=== PATIENT | female | born 1995 | race Caucasian/White ===

== ENCOUNTER 2017-10-15 12:16 | Emergency (ER) | payer OTHER ==
[2017-10-15] MEDS ORDERED: TORAdol 30 mg Injection IM ONE (12:50)
--- NOTE | 2017-10-15 12:50 | ERPHSYRPT ---
- History of Present Illness Time Seen by Provider: 10/15/17 12:44 Source: patient Exam Limitations: no limitations Patient Subjective Stated Complaint: Pt states "back in august, I hit my head on a metal trailer hitch and I almost passed out. Ever since, I have been getting headaches and the vision in my right eye is a little blurry and I am having a horrible ringing in my ears. I went to [facility] and saw le and she said I should come here." Triage Nursing Assessment: Pt alert and oriented X 3, skin pwd PT ambulates with an upright steady gait, able to speak in clear full sentences. PT in no apparent distress. Physician History: The patient is a 22-year-old female sent to the ER from [facility] where she presented with a headache, visual changes, and right ear problems. On September 08 the patient hit the top part of the left side of her head on a [place] trailer hitch knocking her to the ground and causing her to see black for 2-3 seconds. She was nauseated for a day. There was a small cut also to her scalp that was bleeding. The scalp injury has since healed. She still is tender where she hit the trailer. She did not seek medical attention immediately but did so after a few days. She went to [facility] a few days later. No imaging studies were done. She was told she had some sinus problems. Her headache has continued daily since the injury. Her nausea has resolved. She has blurred vision intermittently in her right eye for the last 3-4 days. She also has some muffled hearing in her right ear for the last 3 or 4 days. Her past medical history is unremarkable. Occurred: other (5 weeks ago) Severity: moderate Head Injury Location: parietal (left) Method of Injury: direct blow Loss of Consciousness: dazed, duration (2 to 3 seconds) Associated Symptoms: nausea, headaches Allergies/Adverse Reactions: No Known Drug Allergies Allergy (Unverified 10/15/17 12:26) Home Medications: Norgestimate-Ethinyl Estradiol [Zpr-Fb-Mweaocsyf Tablet] 1 tab PO DAILY [History] Hx Tetanus, Diphtheria Vaccination/Date Given: Yes Hx Influenza Vaccination/Date Given: Yes Hx Pneumococcal Vaccination/Date Given: No Immunizations Up to Date: Yes - Review of Systems Constitutional: No Fever, No Chills Eyes: Vision Changes (right eye for last 4 days.) Ears, Nose, & Throat: No Symptoms, Hearing Changes (right ear) Respiratory: No Cough, No Dyspnea Cardiac: No Chest Pain, No Edema, No Syncope Abdominal/Gastrointestinal: Nausea (resolved), No Abdominal Pain, No Vomiting, No Diarrhea Genitourinary Symptoms: No Dysuria Musculoskeletal: No Back Pain, No Neck Pain Skin: No Rash Neurological: Headache, No Dizziness, No Focal Weakness, No Seizure, No Sensory Changes, No Speech Changes Psychological: No Symptoms Endocrine: No Symptoms Hematologic/Lymphatic: No Symptoms Immunological/Allergic: No Symptoms All Other Systems: Reviewed and Negative - Past Medical History Pertinent Past Medical History: No - Past Surgical History Past Surgical History: Yes Other Surgical History: tonsilectomy - Social History Smoking Status: Never smoker Exposure to second hand smoke: Yes Drug Use: none Patient Lives Alone: No - Female History Hx Last Menstrual Period: 10/02/2017 Hx Now: (unknown) - Nursing Vital Signs Nursing Vital Signs: Initial Vital Signs Temperature 97.7 F 10/15/17 12:20 Pulse Rate 116 H 10/15/17 12:20 Respiratory Rate 18 10/15/17 12:20 Blood Pressure 162/82 10/15/17 12:20 O2 Sat by Pulse Oximetry 98 10/15/17 12:20 Pain Scale Pain Intensity 2 - Sujata Coma Score Best Eye Response (Sujata): (4) open spontaneously Best Verbal Response (Sujata): (5) oriented Best Motor Response (Lisman): (6) obeys commands Lisman Total: 15 - Physical Exam General Appearance: no apparent distress, alert Head Injury: tenderness (mild tenderness to small area of left parietal scalp. 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 Exam: normal hearing, normal speech, tongue midline, No abnormal eye position, No abnormal gag reflex, No abnormal pupil position, No abnormal speech , No facial asymmetry, No facial paresthesias, No facial weakness, No hearing deficit (R), No hearing deficit (L) Motor/Sensory Exam: no motor deficit, no sensory deficit, CN II-XII intact Skin Exam: normal color, warm, dry, No rash SpO2 Interpretation: normal SpO2: 98 Oxygen Delivery: Room Air - CT Exams Head CT Interpretation: Negative (Per Dr Bartholomew), Tele-radiologist Report, No Fracture , No/Intracranial Hemorrhag Ordered Tests: Active Orders 24 hr Category Date Time Status HEAD WITHOUT CONTRAST [CT] Stat Exams 10/15/17 12:51 Completed BMP Stat Lab 10/15/17 13:07 Completed CBC W DIFF Stat Lab 10/15/17 13:07 Completed Medication Summary Discontinued Medications Generic Name Dose Route Start Last Admin Trade Name Freq PRN Reason Stop Dose Admin Ketorolac Tromethamine 60 mg 10/15/17 12:50 10/15/17 12:57 Toradol 30 Mg Injection IM 10/15/17 12:51 60 mg STAT ONE Administration Ketorolac Tromethamine Confirm 10/15/17 12:56 Toradol 30 Mg Injection Administered 10/15/17 12:57 Dose 60 mg .ROUTE .Intersect ENT-MED ONE Lab/Rad Data: Laboratory Result Diagrams 10/15/17 13:07 10/15/17 13:07 Laboratory Results 10/15/17 10/15/17 Range/Units 13:07 13:07 WBC 8.2 (4.0-10.5) K/mm3 RBC 4.75 (4.1-5.4) M/mm3 Hgb 13.4 (12.0-16.0) gm/dl Hct 40.8 (35-47) % MCV 85.9 (78-100) fl MCH 28.2 (26-32) pg MCHC 32.8 (32-36) g/dl RDW 12.7 (11.5-14.0) % Plt Count 279 (150-450) K/mm3 MPV 10.1 H (6-9.5) fl Gran % 59.3 (36.0-66.0) % Eos # (Auto) 0.04 (0-0.5) Absolute Lymphs (auto) 2.66 (1.0-4.6) Absolute Monos (auto) 0.64 (0.0-1.3) Lymphocytes % 32.3 (24.0-44.0) % Monocytes % 7.8 (0.0-12.0) % Eosinophils % 0.5 (0.00-5.0) % Basophils % 0.1 (0.0-0.4) % Absolute Granulocytes 4.88 (1.4-6.9) Basophils # 0.01 (0-0.4) Sodium 142 (137-145) mmol/L Potassium 4.2 (3.5-5.1) mmol/L Chloride 107 (98-107) mmol/L Carbon Dioxide 29 (22-30) mmol/L Anion Gap 9.7 (5-15) MEQ/L BUN 8 (7-17) mg/dL Creatinine 0.55 (0.52-1.04) mg/dL Estimated GFR > 60.0 ML/MIN Glucose 104 (74-106) mg/dL Calcium 9.2 (8.4-10.2) mg/dL - Progress Progress: improved Progress Note: 10/15/17 15:03 After toradol 60 mg IM, headache has resolved. Counseled pt/family regarding: lab results, diagnosis, need for follow-up, rad results - Departure Time of Disposition: 15:03 Departure Disposition: Home Clinical Impression: Posttraumatic headache Condition: Stable Critical Care Time: No Referrals: RUTH SIMS MD [Primary Care Provider] - Additional Instructions: You have a posttraumatic headache. You were given Toradol 60 mg by IM in the ER with good results. Your head CT scan was completely normal. Your blood work was normal. Take naproxen 500 mg 2 times a day as needed. Follow-up next week if the headache returns. Prescriptions: Naproxen 500 mg PO BID PRN #30 tablet.
[2017-10-15] MEDS ORDERED: TORAdol 30 mg Injection ONE (12:56)
[2017-10-15 13:12] LABS: BASOPHIL % 0.1 % (0.0-0.4); Basophil (Absolute #) 0.01 (0-0.4); Eosinophil % 0.5 % (0.00-5.0); Eosinophil (Absolute #) 0.04 (0-0.5); Granulocyte Absolute (ANC) 4.88 (1.4-6.9); Granulocytes % 59.3 % (36.0-66.0); Hematocrit 40.8 % (35-47); Hemoglobin 13.4 gm/dl (12.0-16.0); Lymphocyte (Absolute #) 2.66 (1.0-4.6); Lymphocytes % 32.3 % (24.0-44.0); Mean Cell Volume 85.9 fl (78-100); Mean Corpuscular Hemoglobin 28.2 pg (26-32); Mean Corpuscular Hgb Concent. 32.8 g/dl (32-36); Mean Platelet Volume 10.1 fl (6-9.5); Monocyte (Absolute #) 0.64 (0.0-1.3); Monocytes % 7.8 % (0.0-12.0); Platelet Count 279 K/mm3 (150-450); Red Blood Count 4.75 M/mm3 (4.1-5.4); Red Cell Distribution Width 12.7 % (11.5-14.0); White Blood Count 8.2 K/mm3 (4.0-10.5)
--- NOTE | 2017-10-15 13:30 | XRAY ---
Exam: CT of the head without IV contrast 07/11/2017. CTDI: 52.19 Comparison: None. Indication: 22-year-old female with trauma, hit top of head on left side in August, headache, blurry vision. Findings: Non-IV contrast axial images obtained through the brain. Reconstructed coronal and sagittal images were created and reviewed. The ventricles appear of normal size. No focal mass effect or midline shift is seen. No acute intracranial bleed or abnormal extra-axial fluid collection is seen. The fernandez matter-white matter interfaces appear normal. No low attenuation brain lesion is seen to suggest a territorial infarct or focal edema. The cortical sulci and basilar cisterns appear unremarkable. The calvarium of the skull appears intact. Incidental note of mild focal cortical thickening of the external table of the skull is seen within the right side of the frontal bone on axial images #21 through #25. The visualized paranasal sinuses are essentially clear. The mastoid air cells reveal no effusion or other abnormality. The middle ear cavities appear unremarkable. No gross abnormality of the orbits is seen. Impression: 1. No acute intracranial bleed or other acute intracranial process is seen. Nor do I detect a skull fracture.
[2017-10-15 13:41] LABS: ANION GAP 9.7 MEQ/L (5-15); BLOOD UREA NITROGEN 8 mg/dL (7-17); CHLORIDE 107 mmol/L (98-107); Calcium 9.2 mg/dL (8.4-10.2); Carbon Dioxide 29 mmol/L (22-30); Creatinine 1 0.55 mg/dL (0.52-1.04); Glucose 104 mg/dL (74-106); Potassium 4.2 mmol/L (3.5-5.1); SODIUM 142 mmol/L (137-145)
[2017-10-15 15:05] VITALS: O2SAT 98
[2017-10-15 15:13] VITALS: BP 144/87; PULSE 90
== END 2017-10-15 15:13 | disposition home or self-care (01) ==
LOC: ED 12:16
DX: G44.309 Post-traumatic headache, unspecified, not intractable (principal)
CPT/HCPCS: 36415; 70450; 80048; 85025; 96372; 99284; J1885

== ENCOUNTER 2019-04-07 17:49 | Emergency (ER) | payer OTHER ==
[2019-04-07] MEDS ORDERED: Sodium Chloride 0.9% 1000 ML 1,000 ML IV STA (18:13)
[2019-04-07] MEDS ORDERED: MORPHINE SULFATE 4 MG INJ IV ONE (18:28)
[2019-04-07] MEDS ORDERED: BENADRYL 50 MG/ML IV ONE (18:28)
[2019-04-07] MEDS ORDERED: Sodium Chloride 0.9% 1000 ML 1,000 ML ONE (18:29)
[2019-04-07] MEDS ORDERED: BENADRYL 50 MG/ML ONE (18:34)
[2019-04-07] MEDS ORDERED: MORPHINE SULFATE 4 MG INJ ONE (18:34)
[2019-04-07 18:45] LABS: Appearance CLOUDY (CLEAR); Bilirubin NEGATIVE (NEGATIVE); Blood NEGATIVE Ery/ul (0-5); Epithelial Cells RARE /HPF (FEW); Glucose NEGATIVE (NEGATIVE); Ketones NEGATIVE (NEGATIVE); Leukocyte Esterase SMALL (NEGATIVE); Mucus SLIGHT /HPF (NEGATIVE); Nitrite NEGATIVE (NEGATIVE); Protein,Urine Dip NEGATIVE (Negative); RBC 0-2 /HPF (0-2); Specific Gravity 1.008 (1.005-1.025); Urobilinogen NEGATIVE mg/dL (0-1)
[2019-04-07 18:49] LABS: Absolute Neutrophil Ct (ANC) 5.47 (1.4-6.9); BASOPHIL % 0.2 % (0.0-0.4); Basophil (Absolute #) 0.02 (0-0.4); Eosinophil % 1.5 % (0.00-5.0); Eosinophil (Absolute #) 0.14 (0-0.5); Hematocrit 40.9 % (35-47); Hemoglobin 13.1 gm/dl (12.0-16.0); Lymphocyte (Absolute #) 3.05 (1.0-4.6); Lymphocytes % 32.4 % (24.0-44.0); Mean Cell Volume 84.7 fl (78-100); Mean Corpuscular Hemoglobin 27.1 pg (26-32); Mean Platelet Volume 10.7 fl (6-9.5); Monocyte (Absolute #) 0.74 (0.0-1.3); Monocytes % 7.9 % (0.0-12.0); Platelet Count 302 K/mm3 (150-450); Red Blood Count 4.83 M/mm3 (4.1-5.4); Red Cell Distribution Width 13.4 % (11.5-14.0); White Blood Count 9.4 K/mm3 (4.0-10.5)
[2019-04-07 19:01] LABS: ALBUMIN 4.1 g/dL (3.5-5.0); ALKALINE PHOSPHATASE 84 U/L (38-126); AMYLASE 95 U/L (30-110); ANION GAP 12.8 MEQ/L (5-15); BLOOD UREA NITROGEN 6 mg/dL (7-17); CHLORIDE 107 mmol/L (98-107); Calcium 9.4 mg/dL (8.4-10.2); Carbon Dioxide 24 mmol/L (22-30); Creatinine 1 0.53 mg/dL (0.52-1.04); Glucose 95 mg/dL (74-106); LIPASE 116 U/L (23-300); SGOT/AST 22 U/L (14-36); SGPT/ALT 12 U/L (0-35); SODIUM 140 mmol/L (137-145)
[2019-04-07 19:05] LABS: INR 1.02 (0.8-3.0); PROTIME 11.5 SECONDS (9.95-12.35)
--- NOTE | 2019-04-07 19:18 | ERPHSYRPT ---
- History of Present Illness Time Seen by Provider: 04/07/19 17:50 Historian: patient Exam Limitations: no limitations Patient Subjective Stated Complaint: PATIENT STATES SHE STARTED HAVING SHARP PAINS AROUND 1730 TODAY IN LEFT SIDE/ABD. PATIENT DENIES PAIN OR BURNING UPON URINATION. PATIENT STATES SHE BECAME DIZZY AND FELT LIKE SHE WAS GOING TO THROW UP. Triage Nursing Assessment: PATIENT AMBULATED TO ROOM. PATIENT WITH SLOW AND STEADY GAIT AND HOLDING TO LEFT SIDE. PATIENT STATED PAIN STARTED AROUND 1730 TODAY. PATIENT STATES IT HAS SHARP PAINS WHEN SHE TAKES IN A DEEP BREATH. CENTRAL COLOR WNL. NO BRUISING NOTED TO LEFT SIDE/ABD. PATIENT DENIES ANY INJURY. Physician History: Patient had sudden onset of LLQ abdominal pain prior to coming into the emergency department. Patient had no nausea or vomiting with it. Patient thought it may be constipation, but it was more severe. She has had no evaluation or treatment prior to coming into the emergency department. Timing/Duration: today Activities at Onset: none Quality: cramping, stabbing Pain Radiation: flank Severity of Pain-Max: severe Severity of Pain-Current: moderate Modifying Factors: Improves With: nothing Associated Symptoms: No back, No chest pain, No diaphoresis, No diarrhea, No fever/chills, No fatigue, No headache, No heartburn, No loss of appetite, No nausea, No neck pain, No rash, No shortness of breath, No syncope, No vomiting, No weakness Previous symptoms: same symptoms as today (no evaluation at that time), no recent treatment Allergies/Adverse Reactions: No Known Drug Allergies Allergy (Unverified 10/15/17 12:26) Home Medications: Norgestimate-Ethinyl Estradiol [Nzz-Vo-Mdqewvtsx Tablet] 1 tab PO DAILY [History] Hx Tetanus, Diphtheria Vaccination/Date Given: Yes Hx Influenza Vaccination/Date Given: Yes Hx Pneumococcal Vaccination/Date Given: No Immunizations Up to Date: Yes - Review of Systems Constitutional: No Fever, No Chills, No Lethargy, No Malaise Eyes: No Eye Pain, No Eye Redness Ears, Nose, & Throat: No Mouth Pain, No Throat Pain, No Throat Swelling Respiratory: No Cough, No Dyspnea Cardiac: No Chest Pain, No Edema, No Syncope Abdominal/Gastrointestinal: Abdominal Pain, No Nausea, No Vomiting, No Diarrhea , No Hematemesis, No Hematochezia, No Melena Genitourinary Symptoms: Flank Pain, No Dysuria, No Hematuria Musculoskeletal: No Back Pain, No Neck Pain Skin: No Rash Neurological: No Dizziness, No Focal Weakness, No Sensory Changes Psychological: No Symptoms Endocrine: No Excessive Sweating Hematologic/Lymphatic: No Easy Bleeding, No Easy Bruising All Other Systems: Reviewed and Negative - Past Medical History Pertinent Past Medical History: No Neurological History: Migraines ENT History: No Pertinent History Cardiac History: No Pertinent History Respiratory History: No Pertinent History Endocrine Medical History: No Pertinent History Musculoskeletal History: No Pertinent History GI Medical History: No Pertinent History History: No Pertinent History Psycho-Social History: No Pertinent History Female Reproductive Disorders: No Pertinent History - Past Surgical History Past Surgical History: Yes Neuro Surgical History: No Pertinent History Cardiac: No Pertinent History Respiratory: No Pertinent History Gastrointestinal: No Pertinent History Genitourinary: No Pertinent History Musculoskeletal: No Pertinent History Female Surgical History: No Pertinent History Other Surgical History: tonsilectomy - Social History Smoking Status: Never smoker Exposure to second hand smoke: No Drug Use: none Patient Lives Alone: No - Female History Hx Last Menstrual Period: 03/19/19 Hx Now: No - Nursing Vital Signs Nursing Vital Signs: Initial Vital Signs Temperature 97.5 F 04/07/19 17:57 Pulse Rate 102 H 04/07/19 17:57 Respiratory Rate 18 04/07/19 17:57 Blood Pressure 141/83 04/07/19 17:57 O2 Sat by Pulse Oximetry 97 04/07/19 17:57 Pain Scale Pain Intensity [Left 7 Generalized] Pain Intensity 0 - Physical Exam General Appearance: no apparent distress, alert Eye Exam: PERRL/EOMI, eyes nml inspection Ears, Nose, Throat Exam: normal ENT inspection, pharynx normal, moist mucous membranes Neck Exam: normal inspection, non-tender, supple, full range of motion Respiratory Exam: normal breath sounds, lungs clear, No respiratory distress, No prolonged expirations Cardiovascular Exam: regular rate/rhythm, normal heart sounds, capillary refill <2 sec Gastrointestinal/Abdomen Exam: soft, normal bowel sounds, No tenderness, No distention, No mass, No guarding, No rebound Back Exam: normal inspection, normal range of motion, No CVA tenderness, No vertebral tenderness Extremity Exam: normal inspection, normal range of motion, pelvis stable Neurologic Exam: alert, oriented x 3, 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 6 x 8.3 x 6.7 cm left adnexal cystic mass with tiny cul-de-sac fluid. 12.5 cm splenomegaly. Remaining abdomen and pelvis is negative) Ordered Tests: Active Orders 24 hr Category Date Time Status IV Insertion STAT Care 04/07/19 18:13 Active ABDOMEN AND PELVIS W/0 CONTRAS [CT] Stat Exams 04/07/19 18:25 Taken AMYLASE Stat Lab 04/07/19 18:45 Completed CBC W DIFF Stat Lab 04/07/19 18:45 Completed CMP Stat Lab 04/07/19 18:45 Completed HCG,QUALITATIVE URINE Stat Lab 04/07/19 19:00 Completed LIPASE Stat Lab 04/07/19 18:45 Completed Lactic Acid Stat Lab 04/07/19 18:33 Completed PROTIME WITH INR Stat Lab 04/07/19 18:45 Completed UA W/RFX UR CULTURE Stat Lab 04/07/19 18:28 Completed Medication Summary Discontinued Medications Generic Name Dose Route Start Last Admin Trade Name Freq PRN Reason Stop Dose Admin Diphenhydramine HCl 25 mg 04/07/19 18:28 04/07/19 18:35 Benadryl 50 Mg/Ml IV 04/07/19 18:29 25 mg STAT ONE Administration Diphenhydramine HCl Confirm 04/07/19 18:34 Benadryl 50 Mg/Ml Administered 04/07/19 18:35 Dose 50 mg .ROUTE .STK-MED ONE Sodium Chloride 1,000 mls @ 999 mls/hr 04/07/19 18:13 04/07/19 19:51 Sodium Chloride 0.9% 1000 Ml IV 04/07/19 19:13 Infused .Q1H1M STA Infusion Sodium Chloride Confirm 04/07/19 18:29 Sodium Chloride 0.9% 1000 Ml Administered 04/07/19 18:30 Dose 1,000 mls @ ud .ROUTE .STK-MED ONE Morphine Sulfate 4 mg 04/07/19 18:28 04/07/19 18:35 Morphine Sulfate 4 Mg Inj IV 04/07/19 18:29 4 mg STAT ONE Administration Morphine Sulfate Confirm 04/07/19 18:34 Morphine Sulfate 4 Mg Inj Administered 04/07/19 18:35 Dose 4 mg .ROUTE .STK-MED ONE Lab/Rad Data: Laboratory Result Diagrams 04/07/19 18:45 04/07/19 18:45 Laboratory Results 04/07/19 04/07/19 04/07/19 Range/Units 19:00 18:45 18:45 WBC (4.0-10.5) K/mm3 RBC (4.1-5.4) M/mm3 Hgb (12.0-16.0) gm/dl Hct (35-47) % MCV (78-100) fl MCH (26-32) pg MCHC (32-36) g/dl RDW (11.5-14.0) % Plt Count (150-450) K/mm3 MPV (6-9.5) fl Gran % (36.0-66.0) % Eos # (Auto) (0-0.5) Absolute Lymphs (auto) (1.0-4.6) Absolute Monos (auto) (0.0-1.3) Lymphocytes % (24.0-44.0) % Monocytes % (0.0-12.0) % Eosinophils % (0.00-5.0) % Basophils % (0.0-0.4) % Absolute Granulocytes (1.4-6.9) Basophils # (0-0.4) PT 11.5 (9.95-12.35) SECONDS INR 1.02 (0.8-3.0) Sodium 140 (137-145) mmol/L Potassium 4.0 (3.5-5.1) mmol/L Chloride 107 (98-107) mmol/L Carbon Dioxide 24 (22-30) mmol/L Anion Gap 12.8 (5-15) MEQ/L BUN 6 L (7-17) mg/dL Creatinine 0.53 (0.52-1.04) mg/dL Estimated GFR > 60.0 ML/MIN Glucose 95 (74-106) mg/dL Lactic Acid (0.4-2.0) Calcium 9.4 (8.4-10.2) mg/dL Total Bilirubin 0.50 (0.2-1.3) mg/dL AST 22 (14-36) U/L ALT 12 (0-35) U/L Alkaline Phosphatase 84 (38-126) U/L Serum Total Protein 8.0 (6.3-8.2) g/dL Albumin 4.1 (3.5-5.0) g/dL Amylase 95 (30-110) U/L Lipase 116 (23-300) U/L Urine Color (YELLOW) Urine Appearance (CLEAR) Urine pH (5-6) Ur Specific [place] (1.005-1.025) Urine Protein (Negative) Urine Ketones (NEGATIVE) Urine Blood (0-5) Juni/ul Urine Nitrite (NEGATIVE) Urine Bilirubin (NEGATIVE) Urine Urobilinogen (0-1) mg/dL Ur Leukocyte Esterase (NEGATIVE) Urine WBC (Auto) (0-5) /HPF Urine RBC (Auto) (0-2) /HPF U Epithel Cells (Auto) (FEW) /HPF Urine Bacteria (Auto) (NEGATIVE) /HPF Unidentified Crystals (NEGATIVE) /HPF Urine Mucus (Auto) (NEGATIVE) /HPF Urine Culture Reflexed (NO) Urine Glucose (NEGATIVE) mg/dL Urine HCG, Qual NEGATIVE (Negative) 04/07/19 04/07/19 04/07/19 Range/Units 18:45 18:33 18:28 WBC 9.4 (4.0-10.5) K/mm3 RBC 4.83 (4.1-5.4) M/mm3 Hgb 13.1 (12.0-16.0) gm/dl Hct 40.9 (35-47) % MCV 84.7 (78-100) fl MCH 27.1 (26-32) pg MCHC 32.0 (32-36) g/dl RDW 13.4 (11.5-14.0) % Plt Count 302 (150-450) K/mm3 MPV 10.7 H (6-9.5) fl Gran % 58.0 (36.0-66.0) % Eos # (Auto) 0.14 (0-0.5) Absolute Lymphs (auto) 3.05 (1.0-4.6) Absolute Monos (auto) 0.74 (0.0-1.3) Lymphocytes % 32.4 (24.0-44.0) % Monocytes % 7.9 (0.0-12.0) % Eosinophils % 1.5 (0.00-5.0) % Basophils % 0.2 (0.0-0.4) % Absolute Granulocytes 5.47 (1.4-6.9) Basophils # 0.02 (0-0.4) PT (9.95-12.35) SECONDS INR (0.8-3.0) Sodium (137-145) mmol/L Potassium (3.5-5.1) mmol/L Chloride (98-107) mmol/L Carbon Dioxide (22-30) mmol/L Anion Gap (5-15) MEQ/L BUN (7-17) mg/dL Creatinine (0.52-1.04) mg/dL Estimated GFR ML/MIN Glucose (74-106) mg/dL Lactic Acid 1.7 (0.4-2.0) Calcium (8.4-10.2) mg/dL Total Bilirubin (0.2-1.3) mg/dL AST (14-36) U/L ALT (0-35) U/L Alkaline Phosphatase (38-126) U/L Serum Total Protein (6.3-8.2) g/dL Albumin (3.5-5.0) g/dL Amylase (30-110) U/L Lipase (23-300) U/L Urine Color RED (YELLOW) Urine Appearance CLOUDY (CLEAR) Urine pH 6.0 (5-6) Ur Specific [place] 1.008 (1.005-1.025) Urine Protein NEGATIVE (Negative) Urine Ketones NEGATIVE (NEGATIVE) Urine Blood NEGATIVE (0-5) Juni/ul Urine Nitrite NEGATIVE (NEGATIVE) Urine Bilirubin NEGATIVE (NEGATIVE) Urine Urobilinogen NEGATIVE (0-1) mg/dL Ur Leukocyte Esterase SMALL (NEGATIVE) Urine WBC (Auto) 6-10 (0-5) /HPF Urine RBC (Auto) 0-2 (0-2) /HPF U Epithel Cells (Auto) RARE (FEW) /HPF Urine Bacteria (Auto) NONE (NEGATIVE) /HPF Unidentified Crystals 2-5 (NEGATIVE) /HPF Urine Mucus (Auto) SLIGHT (NEGATIVE) /HPF Urine Culture Reflexed NO (NO) Urine Glucose NEGATIVE (NEGATIVE) mg/dL Urine HCG, Qual (Negative) - Progress Progress: improved Progress Note: 04/07/19 20:38 Patient has no further abdominal pain. Repeat abdominal examination is negative for pain, guarding, rebound or CVA tenderness bilaterally. Patient has no findings that required further inpatient monitoring and treatment, and he surgical or gynecologic or urologic surgical evaluation or any further imaging testing this evening. Patient will followup with her physician as an outpatient on to get an outpatient ultrasound to quantify the left adnexal mass seen on today's CT scan imaging as the patient is at low risk for having an ovarian torsion at this time due to symptomatology as well no bowel obstruction, urologic obstruction or any inflammatory intra-abdominal or intra- pelvic organ disease at this time. Counseled pt/family regarding: lab results, diagnosis, need for follow-up, rad results - Departure Departure Disposition: Home Clinical Impression: LLQ abdominal pain, Adnexal mass, Splenomegaly Condition: Good Critical Care Time: No Referrals: RUTH SIMS MD [Primary Care Provider] - 04/08/19 (follow-up to get an outpatient ultrasound to follow-up today's CT scan findins) Instructions: Acute Abdomen (Belly Pain), Adult (DC), Ovarian Cyst (DC), Acute Pelvic Pain (DC) Additional Instructions: Discharge/Care Plan CANDELARIALEELEE was seen on 04/07/19 in the Emergency Room. The patient was counseled regarding Diagnosis,Lab results, Imaging studies, need for follow up and when to return to the Emergency Room. Follow-up with your doctor in the morning of 04/08/2019 to get set-up for an ultrasound as an outpatient Prescriptions given: Lodine twice daily as needed Discharge Note I have spoken with the patient and family. I have explained the patient's condition, diagnosis and treatment plan based on the information available to me at this time. I have answered the patient's and family's questions and addressed any concerns. The patient and family have as good understanding of the patient's diagnosis, condition and treatment plan as can be expected at this point. The vital signs have been stable. The patient's condition is stable and appropriate for discharge from the emergency department. The patient will pursue further outpatient evaluation with the primary care physician or other designated or consulting physician as outlined in the discharge instructions. The patient and family are agreeable to this plan of care and follow-up instructions have been explained in detail. The patient and family have received these instructions. The patient and family are aware that any significant change in condition or worsening of symptoms should prompt an immediate return to this or the closest emergency department or call 911. Prescriptions: Etodolac 400 mg [Lodine 400 mg] 400 mg PO BID PRN PRN #20 tablet PRN Reason: Pain
[2019-04-07 20:38] VITALS: O2SAT 100
[2019-04-07 21:02] VITALS: BP 109/75; PULSE 87
--- NOTE | 2019-04-08 09:01 | XRAY ---
Indication: Left lower quadrant/left flank pain 2 hours. Nausea and hematuria. Multiple contiguous axial images obtained through the abdomen and pelvis without contrast using renal stone protocol. Comparison: None Lung bases are clear. Heart is not enlarged. A few tiny right infrahilar calcified granulomas. No renal calculus or evidence for obstructive uropathy in either system. Stomach is distended with food. Noncontrasted stomach and bowel loops appear nonobstructed. Normal appendix. There is a 6.0 x 8.3 x 6.7 cm midline pelvic cystic mass appearing to be emanating from the left ovary. Tiny cul-de-sac free fluid. No free air. Spleen is enlarged measuring 12.8 cm. Remaining liver, gallbladder, pancreas, spleen, adrenal glands, kidneys, ureters, bladder, uterus, and aorta appear unremarkable for noncontrast exam. Osseous structures intact. Impression: 1. Negative renal calculus or evidence for obstructive uropathy. 2. Large pelvic cystic mass probably emanating from the left ovary. Tiny cul-de-sac free fluid. Pelvic sonogram may yield further information. 3. Splenomegaly and evidence for old granulomatous disease. CT DI is 19.56
== END 2019-04-07 21:10 | disposition home or self-care (01) ==
LOC: ED 17:49
DX: R10.32 Left lower quadrant pain (principal); D23.9 Other benign neoplasm of skin, unspecified; R16.1 Splenomegaly, not elsewhere classified; R42 Dizziness and giddiness
CPT/HCPCS: 36000; 36415; 74176; 80053; 81001; 82150; 83605; 83690; 84703; 85025; 85610; 96360; 96374; 96375; 99284; J1200; J2270

== ENCOUNTER 2019-04-13 05:59 | Day surgery (SDC) | payer OTHER ==
[2019-04-13] MEDS ORDERED: Lactated Ringers 1,000 ML IV SCH (06:30)
[2019-04-13] MEDS ORDERED: KEFZOL 1 GM/50 ML PREMIX** 1 GM/50 ML IVPB IV SCH (06:30)
[2019-04-13] MEDS ORDERED: Lactated Ringers 1,000 ML IV ONE (08:40)
[2019-04-13] MEDS ORDERED: Sensorcaine 0.25% 10 ML ONE (08:40)
[2019-04-13] MEDS ORDERED: SUBLIMAZE 100 MCG/2 ML ONE ×2 (08:56→09:45)
[2019-04-13] MEDS ORDERED: Quelicin Fliptop 200 MG/10 ML ONE (08:56)
[2019-04-13] MEDS ORDERED: Zemuron 100 MG/10 ML ONE (08:56)
[2019-04-13] MEDS ORDERED: DIPRIVAN 200 MG/20 ML IV ONE (08:56)
[2019-04-13] MEDS ORDERED: BRIDION 200MG/2ML IV ONE (09:36)
[2019-04-13] MEDS ORDERED: TORAdol 30 mg Injection ONE (09:36)
[2019-04-13] MEDS ORDERED: Decadron 4 MG INJ ONE (09:36)
[2019-04-13] MEDS ORDERED: Zofran 4 MG/2 ML VIAL ONE ×2 (09:36→10:17)
[2019-04-13 11:32] VITALS: O2SAT 97
[2019-04-13 11:41] LABS: Appearance CLEAR (CLEAR); Bilirubin NEGATIVE (NEGATIVE); Blood NEGATIVE Ery/ul (0-5); Glucose NEGATIVE (NEGATIVE); Ketones NEGATIVE (NEGATIVE); Leukocyte Esterase NEGATIVE (NEGATIVE); Mucus SLIGHT /HPF (NEGATIVE); Nitrite NEGATIVE (NEGATIVE); Protein,Urine Dip NEGATIVE (Negative); Specific Gravity 1.024 (1.005-1.025); Urobilinogen NEGATIVE mg/dL (0-1)
[2019-04-13 11:50] VITALS: BP 154/65; PULSE 99
--- NOTE | 2019-04-15 10:05 | OP ---
SURGERY DATE: 04/13/19 SURGERY TIME: 854 PREOPERATIVE DIAGNOSIS: 1. PELVIC PAIN. 2. LEFT OVARIAN CYST. POSTOPERATIVE DIAGNOSIS: 1. PELVIC PAIN. 2. LEFT OVARIAN CORPUS LUTEAL OR FOLLICULAR CYST. PROCEDURE: 1. Diagnostic laparoscopy. 2. Left ovarian cystectomy. SURGEON: Dr. Walter Sharp. FIGHT MANAGER: Eduardo. ANESTHESIA: General. ESTIMATED BLOOD LOSS: Minimal. COMPLICATIONS: None. FINDINGS: The risks, benefits, indications, and alternatives of the procedure were reviewed with the patient prior to the procedure. Patient understood the risk of infection, bleeding, bowel injury, bladder injury, ureteral injury, incisional hernia, and pelvic infection associated with the surgery and desired to have the surgery as a possible need to alleviate her current medical condition. DESCRIPTION OF PROCEDURE AND FINDINGS: At this point, the patient was taken to the operating room, given general sedation, placed in the supine position where her anesthesia was given without complication. From this point, the patient was surgically prepped and at this point, a 5 mm incision was made approximately 2 cm above the umbilicus where a 5 mm trocar and sleeve were advanced under direct visualization with 4 liters of gas where pneumoperitoneum was obtained without complication. From this point, under visualization, it was noted that the patient had a left ovarian cyst approximately 8 X 6 cm in dimension with no excrescences on the surface of the ovary. Appeared to be clear. However, attached to the left ovary. From the point, the LigaSure was then used and was placed at the base of the cystic region adjacent to the ovarian portion and clear fluid was extruded and the cystic portion was cut, coagulated, and excised without complication with the LigaSure and there was no bleeding that was noted. The cystic region was removed from the additional incisions that were made in the left middle quadrant region where the 5 mm trocar and sleeve were advanced and an additional 5 mm incision was made 2 cm above the symphysis pubis midline. The cystic portion was removed in its entirety without complication and there was again no bleeding that was noted after excision. The right adnexa appeared to be within normal limits with no abnormalities that were noted and at this point, the left adnexa appeared to be within normal limits. However, the left fallopian tube appeared to be adhesed to the ovarian portion from the distal end of the fallopian tube to fimbriated end. At this point, suction irrigation was obtained and at this point, the remainder of the abdominal region appeared to be within normal limits. From this point, all instruments were then removed from the patient's abdominal region, the gas was released, and the incisions were repaired with 4-0 Monocryl suture with subsequent Dermabond. The patient was then taken out of anesthesia and was then taken to the recovery room in stable condition. All instruments and laps were accounted for X 2.
== END 2019-04-13 12:00 | disposition home or self-care (01) ==
LOC: SDC 05:59
PROVIDERS: ATTEND Obstetrics & Gynecology
DX: R10.2 Pelvic and perineal pain (principal); N83.202 Unspecified ovarian cyst, left side
CPT/HCPCS: 58662; 81001; 84703; 87086; 88304; 88305; J0330; J0690; J1100; J1885; J2405; J2704; J3010

== ENCOUNTER 2021-02-23 16:15 | Emergency (ER) | payer OTHER ==
[2021-02-23 16:31] VITALS: BP 147/84; PULSE 108; O2SAT 98
--- NOTE | 2021-02-23 16:57 | ERPHSYRPT ---
- History of Present Illness Source: patient Exam Limitations: no limitations Patient Subjective Stated Complaint: pt here for lower back pain today, with some nausea and buring with urination Triage Nursing Assessment: pt alert walked in, resp easy, face mask in place, sk in w/d/p,abd soft, Physician History: 25 yo wf w dysuria/frequency/urgency/flank pain x 1 day wo hematuria/fever/N/V/D. is denied. Timing/Duration: today Activites at Onset: none Quality: aching Onset Location: right flank, left flank Pain Radiation: right flank, left flank Severity of Pain-Max: mild Severity of Pain-Current: mild Prior abdominal problems: UTI Sexual intercourse history: non-contributory Modifying Factors: Improves With: nothing, urinating Associated Symptoms: dysuria, urinary frequency, lower back pain, No abdominal pain, No fever, No chills, No diaphoresis, No nausea, No vomiting, No nocturia, No polyuria, No , No loss of bladder control, No lumps, No mass, No swelling, No syncope, No vaginal discharge Allergies/Adverse Reactions: No Known Drug Allergies Allergy (Verified 02/23/21 16:31) Home Medications: Norgestrel-Ethinyl Estradiol [Cryselle-28 Tablet] 1 each PO DAILY 04/13/19 [History] Sertraline HCl 50 mg [Zoloft 50 mg Tablet] 1 ea DAILY 02/23/21 [History] Hx Tetanus, Diphtheria Vaccination/Date Given: Yes Hx Influenza Vaccination/Date Given: Yes Hx Pneumococcal Vaccination/Date Given: No Travel Risk - International Travel Have you traveled outside of the country in past 3 weeks: No - Coronavirus Screening Are you exhibiting any of the following symptoms?: No - Vaccine Status Have you recieved a Covid-19 vaccination: No - Review of Systems Constitutional: No Symptoms Eyes: No Symptoms Ears, Nose, & Throat: No Symptoms Respiratory: No Symptoms Cardiac: No Symptoms Abdominal/Gastrointestinal: No Symptoms Genitourinary Symptoms: No Symptoms, Dysuria, Urgency Musculoskeletal: No Symptoms Skin: No Symptoms Neurological: No Symptoms Psychological: No Symptoms Endocrine: No Symptoms Hematologic/Lymphatic: No Symptoms Immunological/Allergic: No Symptoms - Past Medical History Pertinent Past Medical History: No Neurological History: Migraines ENT History: No Pertinent History Cardiac History: No Pertinent History Respiratory History: No Pertinent History Endocrine Medical History: No Pertinent History Musculoskeletal History: No Pertinent History GI Medical History: No Pertinent History History: No Pertinent History Psycho-Social History: No Pertinent History Female Reproductive Disorders: No Pertinent History - Past Surgical History Past Surgical History: Yes Neuro Surgical History: No Pertinent History Cardiac: No Pertinent History Respiratory: No Pertinent History Gastrointestinal: No Pertinent History Genitourinary: No Pertinent History Musculoskeletal: No Pertinent History Female Surgical History: No Pertinent History Other Surgical History: tonsilectomy - Social History Smoking Status: Never smoker Exposure to second hand smoke: No Drug Use: none Patient Lives Alone: No Significant Family History: no pertinent family hx - Female History Hx Last Menstrual Period: last week Hx Now: No - Nursing Vital Signs Nursing Vital Signs: Initial Vital Signs Temperature 97.2 F 02/23/21 16:18 Pulse Rate 108 H 02/23/21 16:18 Respiratory Rate 16 02/23/21 16:18 Blood Pressure 147/84 02/23/21 16:18 O2 Sat by Pulse Oximetry 98 02/23/21 16:18 Pain Scale Pain Intensity 6 Hypertensive - Physical Exam General Appearance: no apparent distress Eye Exam: PERRL/EOMI, eyes nml inspection Ears, Nose, Throat Exam: normal ENT inspection, TMs normal, pharynx normal, moist mucous membranes Neck Exam: normal inspection, non-tender, supple, full range of motion, No meningismus, No mass, No Brudzinski, No Kernig's Respiratory Exam: normal breath sounds, lungs clear, airway intact, No respiratory distress Cardiovascular Exam: regular rate/rhythm, normal heart sounds, normal peripheral pulses, No murmur Gastrointestinal/Abdomen Exam: soft, normal bowel sounds, No tenderness Back Exam: CVA tenderness (L>R), No vertebral tenderness Extremity Exam: normal inspection, normal range of motion Neurologic Exam: alert, oriented x 3, cooperative, wrapper hand II-XII nml as tested, normal mood/affect, nml cerebellar function, nml station & gait, sensation nml, No motor deficits, No sensory deficit Skin Exam: normal color, warm, dry, No rash Lymphatic Exam: No adenopathy SpO2 Interpretation: normal SpO2: 98 O2 Delivery: Room Air Ordered Tests: Active Orders 24 hr Category Date Time Status UA W/RFX UR CULTURE Stat Lab 02/23/21 16:32 Completed Medication Summary Discontinued Medications Generic Name Dose Route Start Last Admin Trade Name William PRN Reason Stop Dose Admin Ketorolac Tromethamine 60 mg 02/23/21 17:21 02/23/21 18:03 Ketorolac Tromethamine 30 Mg/Ml Inj IM 02/23/21 17:22 60 mg STAT ONE Administration Ketorolac Tromethamine Confirm 02/23/21 18:01 Ketorolac Tromethamine 30 Mg/Ml Inj Administered 02/23/21 18:02 Dose 60 mg .ROUTE .STK-MED ONE Lab/Rad Data: Laboratory Results 02/23/21 Range/Units 16:32 Urine Color YELLOW (YELLOW) Urine Appearance SLIGHTLY CLOUDY (CLEAR) Urine pH 7.0 (5-6) Ur Specific Hanna 1.000 (1.005-1.025) Urine Protein NEGATIVE (Negative) Urine Ketones NEGATIVE (NEGATIVE) Urine Blood NEGATIVE (0-5) Juni/ul Urine Nitrite NEGATIVE (NEGATIVE) Urine Bilirubin NEGATIVE (NEGATIVE) Urine Urobilinogen NEGATIVE (0-1) mg/dL Ur Leukocyte Esterase TRACE (NEGATIVE) Urine WBC (Auto) 3-5 (0-5) /HPF Urine RBC (Auto) NONE (0-2) /HPF U Epithel Cells (Auto) RARE (FEW) /HPF Urine Mucus (Auto) SLIGHT (NEGATIVE) /HPF Urine Culture Reflexed NO (NO) Urine Glucose NEGATIVE (NEGATIVE) mg/dL - Progress Progress Note: 02/23/21 17:24 60mg IM Toradol Counseled pt/family regarding: lab results, diagnosis, need for follow-up - Departure Departure Disposition: Home Clinical Impression: Cystitis Condition: Stable Critical Care Time: No Referrals: RUTH SIMS MD [Primary Care Provider] - Follow up/PCP as directed Instructions: Urinary Tract Infection, Adult (DC) Additional Instructions: Rest/Fluids/Motrin/Tylenol Follow up with your family Start Macrobid twice a day Prescriptions: Nitrofurantoin Monohyd/M-Cryst [Macrobid 100 mg Capsule] 100 mg PO BID #10
[2021-02-23 17:03] LABS: Appearance SLIGHTLY CLOUDY (CLEAR); Bilirubin NEGATIVE (NEGATIVE); Blood NEGATIVE Ery/ul (0-5); Epithelial Cells RARE /HPF (FEW); Glucose NEGATIVE (NEGATIVE); Ketones NEGATIVE (NEGATIVE); Leukocyte Esterase TRACE (NEGATIVE); Mucus SLIGHT /HPF (NEGATIVE); Nitrite NEGATIVE (NEGATIVE); Protein,Urine Dip NEGATIVE (Negative); Urobilinogen NEGATIVE mg/dL (0-1)
[2021-02-23] MEDS ORDERED: TORAdol 30 mg Injection IM ONE (17:21)
[2021-02-23] MEDS ORDERED: TORAdol 30 mg Injection ONE (18:01)
== END 2021-02-23 18:29 | disposition home or self-care (01) ==
LOC: ED 16:15
DX: N30.90 Cystitis, unspecified without hematuria (principal)
CPT/HCPCS: 81001; 96372; 99284; J1885

== ENCOUNTER 2021-05-29 07:51 | Emergency (ER) | payer OTHER ==
[2021-05-29 08:37] LABS: Absolute Neutrophil Ct (ANC) 5.33 (1.4-6.9); Basophil (Absolute #) 0.02 (0-0.4); Eosinophil % 0.8 % (0.00-5.0); Eosinophil (Absolute #) 0.07 (0-0.5); Hematocrit 40.6 % (35-47); Hemoglobin 13.2 gm/dl (12.0-16.0); Lymphocytes % 31.3 % (24.0-44.0); Mean Cell Volume 84.9 fl (78-100); Mean Corpuscular Hemoglobin 27.6 pg (26-32); Mean Corpuscular Hgb Concent. 32.5 g/dl (32-36); Mean Platelet Volume 10.1 fl (7.5-11.0); Monocyte (Absolute #) 0.51 (0.0-1.3); Monocytes % 5.9 % (0.0-12.0); Neutrophil % 61.8 % (36.0-66.0); Platelet Count 285 K/mm3 (150-450); Red Blood Count 4.78 M/mm3 (4.1-5.4); White Blood Count 8.6 K/mm3 (4.0-10.5)
--- NOTE | 2021-05-29 08:37 | ERPHSYRPT ---
- History of Present Illness Source: patient Exam Limitations: no limitations Patient Subjective Stated Complaint: Pt states "I tested positive for covid on the of last month. Yesterday I started to get short of breath and it just got worse this morning." Triage Nursing Assessment: Pt presented alert and oriented X 3, skin pwd Pt able to speak in clear full sentences pt ambulates with an upright steady gait, pt has sinus congestion. Physician History: 25 yo wf w + home CV19 test on 05/21/21 presents w dyspnea x1 day. Pt has had cough/coryza/N/Diarrhea/fever/RODRIGUEZ/myalgias since 05/20/21. Pt has mild chest discomfort w shoulder pain since 3AM. Timing/Duration: other (05/20/21) Cough Quality/Degree: dry cough Possible Cause: no prior episodes Modifying Factors: Improves With: coughing Associated Symptoms: fever, chills, chest pain/soreness, cough, muscle aches, nasal congestion, nasal drainage, shortness of breath, No dizziness, No earache, No facial pain, No headache, No lightheadedness, No sinus infection, No sore throat, No wheezing Allergies/Adverse Reactions: No Known Drug Allergies Allergy (Verified 02/23/21 16:31) Home Medications: Norgestrel-Ethinyl Estradiol [Cryselle-28 Tablet] 1 each PO DAILY 04/13/19 [History] Sertraline HCl 50 mg [Zoloft 50 mg Tablet] 1 ea DAILY 02/23/21 [History] Hx Tetanus, Diphtheria Vaccination/Date Given: Yes Hx Influenza Vaccination/Date Given: Yes Hx Pneumococcal Vaccination/Date Given: No Immunizations Up to Date: Yes Travel Risk - International Travel Have you traveled outside of the country in past 3 weeks: No - Coronavirus Screening Are you exhibiting any of the following symptoms?: Yes Symptoms: Cough: New Onset, Shortness of Breath Close contact with a COVID-19 positive Pt in past 14-21 Days: Yes - Vaccine Status Have you recieved a Covid-19 vaccination: No - Review of Systems Constitutional: No Symptoms, Fever, Chills Eyes: No Symptoms Ears, Nose, & Throat: No Symptoms, Nose Congestion, Nose Discharge, No Mouth Pain, No Mouth Swelling Respiratory: No Symptoms, Cough, Dyspnea Cardiac: No Symptoms, Chest Pain Genitourinary Symptoms: No Symptoms Musculoskeletal: No Symptoms, Arthralgias, Myalgias Skin: No Symptoms Neurological: No Symptoms Psychological: No Symptoms Endocrine: No Symptoms Hematologic/Lymphatic: No Symptoms Immunological/Allergic: No Symptoms - Past Medical History Pertinent Past Medical History: Yes Neurological History: Migraines ENT History: No Pertinent History Cardiac History: No Pertinent History Respiratory History: No Pertinent History Endocrine Medical History: No Pertinent History Musculoskeletal History: No Pertinent History GI Medical History: No Pertinent History History: No Pertinent History Psycho-Social History: Anxiety, Depression Female Reproductive Disorders: No Pertinent History - Past Surgical History Past Surgical History: Yes Neuro Surgical History: No Pertinent History Cardiac: No Pertinent History Respiratory: No Pertinent History Gastrointestinal: No Pertinent History Genitourinary: No Pertinent History Musculoskeletal: No Pertinent History Female Surgical History: No Pertinent History Other Surgical History: tonsilectomy. ovarian cyst - Social History Smoking Status: Never smoker Exposure to second hand smoke: No Drug Use: none Patient Lives Alone: No Significant Family History: no pertinent family hx - Female History Hx Last Menstrual Period: 05/05/2020 Hx Now: (unknown) - Nursing Vital Signs Nursing Vital Signs: Initial Vital Signs Temperature 99.0 F 05/29/21 07:53 Pulse Rate 107 H 05/29/21 07:53 Respiratory Rate 24 05/29/21 07:53 Blood Pressure 141/94 05/29/21 07:53 O2 Sat by Pulse Oximetry 97 05/29/21 07:53 Pain Scale Pain Intensity 0 Hypertensive/Tachy - Physical Exam General Appearance: no apparent distress, anxiety Eye Exam: PERRL/EOMI, eyes nml inspection Ears, Nose, Throat Exam: normal ENT inspection, TMs normal, pharynx normal, moist mucous membranes Neck Exam: normal inspection, non-tender, supple, full range of motion, No meningismus, No mass, No Brudzinski, No Kernig's Respiratory Exam: normal breath sounds, lungs clear, airway intact, No respiratory distress Cardiovascular Exam: tachycardia, No murmur Gastrointestinal/Abdomen Exam: soft, normal bowel sounds, No tenderness Back Exam: normal inspection, normal range of motion, No CVA tenderness Extremity Exam: normal inspection, normal range of motion Neurologic Exam: alert, oriented x 3, cooperative, stogy maker II-XII nml as tested, normal mood/affect, nml cerebellar function, nml station & gait, sensation nml, No motor deficits, No sensory deficit Skin Exam: normal color, warm, dry Lymphatic Exam: No adenopathy SpO2 Interpretation: normal SpO2: 97 O2 Delivery: Room Air - Course Nursing assessment & vital signs reviewed: Yes EKG Interpreted by Me: RATE (NSR/R92/Normal Qt-QTc/Flat T waves/No acute ST- Twave changes) - Radiology Exams Chest X-ray Interpretation: Discussed w/ radiologist (CXR wnl) Ordered Tests: Active Orders 24 hr Category Date Time Status EKG-ER Only STAT Care 05/29/21 08:06 Completed CHEST 1 VIEW (PORTABLE) Stat Exams 05/29/21 08:06 Completed CBC W DIFF Stat Lab 05/29/21 08:30 Completed CMP Stat Lab 05/29/21 08:30 Completed COVID AG-BINAX NOW RAPID TEST Stat Lab 05/29/21 08:49 Completed D-DIMER QUANTITATIVE Stat Lab 05/29/21 08:30 Completed NT PRO BNP Stat Lab 05/29/21 08:30 Completed TROPONIN Q3H Lab 05/29/21 08:30 Completed Medication Summary Discontinued Medications Generic Name Dose Route Start Last Admin Trade Name Freq PRN Reason Stop Dose Admin Dexamethasone Sodium Phosphate 10 mg 05/29/21 09:15 05/29/21 09:19 Dexamethasone Sod Phosphate 10 Mg/Ml IV 05/29/21 09:16 10 mg STAT ONE Administration Dexamethasone Sodium Phosphate Confirm 05/29/21 09:18 Dexamethasone Sod Phosphate 10 Mg/Ml Administered 05/29/21 09:19 Dose 10 mg .ROUTE .[employer]-MED ONE Lab/Rad Data: Laboratory Result Diagrams 05/29/21 08:30 05/29/21 08:30 Laboratory Results 05/29/21 05/29/21 05/29/21 Range/Units 08:49 08:30 08:30 WBC (4.0-10.5) K/mm3 RBC (4.1-5.4) M/mm3 Hgb (12.0-16.0) gm/dl Hct (35-47) % MCV (78-100) fl MCH (26-32) pg MCHC (32-36) g/dl RDW (11.5-14.0) % Plt Count (150-450) K/mm3 MPV (7.5-11.0) fl Gran % (36.0-66.0) % Eos # (Auto) (0-0.5) Absolute Lymphs (auto) (1.0-4.6) Absolute Monos (auto) (0.0-1.3) Lymphocytes % (24.0-44.0) % Monocytes % (0.0-12.0) % Eosinophils % (0.00-5.0) % Basophils % (0.0-0.4) % Absolute Granulocytes (1.4-6.9) Basophils # (0-0.4) D-Dimer 309 (215-500) ng/mL Sodium (137-145) mmol/L Potassium (3.5-5.1) mmol/L Chloride (98-107) mmol/L Carbon Dioxide (22-30) mmol/L Anion Gap (5-15) MEQ/L BUN (7-17) mg/dL Creatinine (0.52-1.04) mg/dL Estimated GFR ML/MIN Glucose (74-106) mg/dL Calcium (8.4-10.2) mg/dL Total Bilirubin (0.2-1.3) mg/dL AST (14-36) U/L ALT (0-35) U/L Alkaline Phosphatase (38-126) U/L Troponin I < 0.012 (0.000-0.034) ng/mL NT-Pro-B Natriuret Pep (0-450) pg/mL Serum Total Protein (6.3-8.2) g/dL Albumin (3.5-5.0) g/dL SARS-CoV-2 Ag (Rapid) NEGATIVE (NEGATIVE) 05/29/21 05/29/21 Range/Units 08:30 08:30 WBC 8.6 (4.0-10.5) K/mm3 RBC 4.78 (4.1-5.4) M/mm3 Hgb 13.2 (12.0-16.0) gm/dl Hct 40.6 (35-47) % MCV 84.9 (78-100) fl MCH 27.6 (26-32) pg MCHC 32.5 (32-36) g/dl RDW 13.0 (11.5-14.0) % Plt Count 285 (150-450) K/mm3 MPV 10.1 (7.5-11.0) fl Gran % 61.8 (36.0-66.0) % Eos # (Auto) 0.07 (0-0.5) Absolute Lymphs (auto) 2.70 (1.0-4.6) Absolute Monos (auto) 0.51 (0.0-1.3) Lymphocytes % 31.3 (24.0-44.0) % Monocytes % 5.9 (0.0-12.0) % Eosinophils % 0.8 (0.00-5.0) % Basophils % 0.2 (0.0-0.4) % Absolute Granulocytes 5.33 (1.4-6.9) Basophils # 0.02 (0-0.4) D-Dimer (215-500) ng/mL Sodium 139 (137-145) mmol/L Potassium 4.1 (3.5-5.1) mmol/L Chloride 105 (98-107) mmol/L Carbon Dioxide 25 (22-30) mmol/L Anion Gap 13.2 (5-15) MEQ/L BUN 8 (7-17) mg/dL Creatinine 0.64 (0.52-1.04) mg/dL Estimated GFR > 60.0 ML/MIN Glucose 89 (74-106) mg/dL Calcium 9.3 (8.4-10.2) mg/dL Total Bilirubin 0.60 (0.2-1.3) mg/dL AST 18 (14-36) U/L ALT 15 (0-35) U/L Alkaline Phosphatase 109 (38-126) U/L Troponin I (0.000-0.034) ng/mL NT-Pro-B Natriuret Pep 68.1 (0-450) pg/mL Serum Total Protein 7.1 (6.3-8.2) g/dL Albumin 4.0 (3.5-5.0) g/dL SARS-CoV-2 Ag (Rapid) (NEGATIVE) - Progress Progress: improved Progress Note: 05/29/21 09:18 10mg IV Decadron Pt's signs/symptoms consistent w resolving/resolved CV19 wo evidence of PE/IL/consolidation on CXR. Since Binex is neg, pt released to work tomorrow 05/29/21 09:24 Counseled pt/family regarding: lab results, diagnosis, need for follow-up, rad results - Departure Departure Disposition: Home Clinical Impression: COVID-19 Condition: Stable Critical Care Time: No Referrals: RUTH SIMS MD [Primary Care Provider] - Follow up/PCP as directed Instructions: Shortness of Breath (Dyspnea) (DC), Coronavirus Disease 2019 (COVID-19) (DC) Additional Instructions: Get a pulse oximeter and monitor oxygen saturation 2-3 times a day Return to ER for persistent oxygen saturation less than 91% VitaminD 5000units a day Follow up with your family MD Forms: Work/School Release Form Prescriptions: Dexamethasone 4 mg [Decadron 4 MG] 4 mg PO DAILY 5 Days #5 tablet
--- NOTE | 2021-05-29 09:02 | XRAY ---
Indication: Covid 19 symptoms. Comparison: None Portable chest demonstrates normal heart, lungs, and bony thorax.
[2021-05-29 09:04] LABS: ALKALINE PHOSPHATASE 109 U/L (38-126); ANION GAP 13.2 MEQ/L (5-15); BLOOD UREA NITROGEN 8 mg/dL (7-17); CHLORIDE 105 mmol/L (98-107); Calcium 9.3 mg/dL (8.4-10.2); Carbon Dioxide 25 mmol/L (22-30); Creatinine 1 0.64 mg/dL (0.52-1.04); EST GLOMERULAR FILTRATION RATE > 60.0 ML/MIN; Glucose 89 mg/dL (74-106); NT PRO BNP 68.1 pg/mL (0-450); Potassium 4.1 mmol/L (3.5-5.1); SGOT/AST 18 U/L (14-36); SGPT/ALT 15 U/L (0-35); SODIUM 139 mmol/L (137-145); Total Protein 7.1 g/dL (6.3-8.2)
[2021-05-29] MEDS ORDERED: DECADRON 10MG INJ. IV ONE (09:15)
[2021-05-29 09:17] VITALS: BP 125/76; PULSE 92; O2SAT 97
[2021-05-29] MEDS ORDERED: DECADRON 10MG INJ. ONE (09:18)
[2021-05-29 09:22] LABS: COVID AG -BINAX NOW RAPID TEST NEGATIVE (NEGATIVE)
== END 2021-05-29 09:40 | disposition home or self-care (01) ==
LOC: ED 07:51
DX: U07.1 COVID-19 (principal); R06.00 Dyspnea, unspecified; R05.9 Cough, unspecified; R09.81 Nasal congestion; R19.7 Diarrhea, unspecified; R50.9 Fever, unspecified; R51.9 Headache, unspecified; M79.10 Myalgia, unspecified site; Z79.52 Long term (current) use of systemic steroids
CPT/HCPCS: 36000; 36415; 71045; 80053; 83880; 84484; 85025; 85379; 93005; 96374; 99000; 99284; J1100

== ENCOUNTER 2021-10-16 20:15 | Emergency (ER) | payer BC, OTHER ==
[2021-10-16 21:36] VITALS: O2SAT 98
[2021-10-16] MEDS ORDERED: solu-MEDROL 125 MG, Sterile H2O 10 ml 2 ML IM ONE ×2 (22:12)
[2021-10-16] MEDS ORDERED: TORAdol 30 mg Injection IM ONE (22:13)
[2021-10-16 22:21] VITALS: BP 133/63
--- NOTE | 2021-10-16 22:22 | ERPHSYRPT ---
- History of Present Illness Time Seen by Provider: 10/16/21 20:45 Source: patient Exam Limitations: no limitations Patient Subjective Stated Complaint: pt woke up this am with l shoulder pain. pt does not recall ever straining shoulder. pt states if she is stationary her shoulder does not hurt but once she moves her pain is 8/10. fever this am at 100.0 Triage Nursing Assessment: pt is alert and orietned. family at bedside. pt bp is elevated at 173/93 Physician History: Patient is a 26-year-old white female presents with a complaint of left shoulder pain she awoke this morning with pain in the left shoulder it is been increasing throughout the day. She does not know of any injury. The greatest pain is when she abducts the arm at the shoulder. Occurred: this morning Method of Injury: unknown Quality: aching Severity of Pain-Max: moderate Severity of Pain-Current: moderate Extremities Pain Location: shoulder: left (Pain with abduction) Modifying Factors: Improves With: movement Allergies/Adverse Reactions: No Known Drug Allergies Allergy (Verified 10/16/21 20:48) Home Medications: Norgestrel-Ethinyl Estradiol [Cryselle-28 Tablet] 1 each PO DAILY 04/13/19 [History] Sertraline HCl 50 mg [Zoloft 50 mg Tablet] 1 ea DAILY 02/23/21 [History] Hx Tetanus, Diphtheria Vaccination/Date Given: Yes Hx Influenza Vaccination/Date Given: Yes Hx Pneumococcal Vaccination/Date Given: No Travel Risk - International Travel Have you traveled outside of the country in past 3 weeks: No - Coronavirus Screening Are you exhibiting any of the following symptoms?: No Close contact with a COVID-19 positive Pt in past 14-21 Days: No - Vaccine Status Have you recieved a Covid-19 vaccination: No - Review of Systems Constitutional: No Fever, No Chills Eyes: No Symptoms Ears, Nose, & Throat: No Symptoms Respiratory: No Cough, No Dyspnea Cardiac: No Chest Pain, No Edema, No Syncope Abdominal/Gastrointestinal: No Abdominal Pain, No Nausea, No Vomiting, No Diarrhea Genitourinary Symptoms: No Dysuria Musculoskeletal: Joint Pain, No Back Pain, No Neck Pain Skin: No Rash Neurological: No Dizziness, No Focal Weakness, No Sensory Changes Psychological: No Symptoms Endocrine: No Symptoms All Other Systems: Reviewed and Negative - Past Medical History Pertinent Past Medical History: Yes Neurological History: Migraines ENT History: No Pertinent History Cardiac History: No Pertinent History Respiratory History: No Pertinent History Endocrine Medical History: No Pertinent History Musculoskeletal History: No Pertinent History GI Medical History: No Pertinent History History: No Pertinent History Psycho-Social History: Anxiety, Depression Female Reproductive Disorders: No Pertinent History - Past Surgical History Past Surgical History: Yes Neuro Surgical History: No Pertinent History Cardiac: No Pertinent History Respiratory: No Pertinent History Gastrointestinal: No Pertinent History Genitourinary: No Pertinent History Musculoskeletal: No Pertinent History Female Surgical History: No Pertinent History Other Surgical History: tonsilectomy. ovarian cyst - Social History Smoking Status: Never smoker Exposure to second hand smoke: No Drug Use: none Patient Lives Alone: No Significant Family History: no pertinent family hx - Female History Hx Last Menstrual Period: 09/15/21 Hx Now: No - Nursing Vital Signs Nursing Vital Signs: Initial Vital Signs Temperature 97.9 F 10/16/21 20:38 Pulse Rate 105 H 10/16/21 20:38 Respiratory Rate 18 10/16/21 20:38 Blood Pressure 173/93 10/16/21 20:38 O2 Sat by Pulse Oximetry 100 10/16/21 20:38 Pain Scale Pain Intensity 6 - Physical Exam General Appearance: mild distress Eyes, Ears, Nose, Throat Exam: normal ENT inspection Neck Exam: normal inspection, non-tender, supple Cardiovascular/Respiratory Exam: no respiratory distress, No rib tenderness Shoulder Exam: limited ROM, pain, soft tissue tenderness Elbow/Forearm Exam: normal inspection, non-tender, no evidence of injury Wrist Exam: normal inspection, non-tender, no evidence of injury Hand Exam: normal inspection, non-tender, no evidence of injury Neuro/Tendon Exam: normal sensation, normal motor functions, no evidence tendon injury Mental Status Exam: alert, oriented x 3, cooperative Skin Exam: normal color, warm, dry SpO2 Interpretation: normal SpO2: 98 O2 Delivery: Room Air - Course Nursing assessment & vital signs reviewed: Yes - Radiology Exams Left Shoulder X-ray Interpretation: Interpreted by me, Negative Ordered Tests: Active Orders 24 hr Category Date Time Status SHOULDER Stat Exams 10/16/21 21:17 Taken - Progress Progress: unchanged - Departure Departure Disposition: Home Clinical Impression: Subacromial bursitis of left shoulder joint Condition: Stable Critical Care Time: No Referrals: RUTH SIMS MD [Primary Care Provider] - Follow up/PCP as directed Instructions: Shoulder Bursitis (DC) Prescriptions: Hydrocodone/Acetaminophen [Hydrocodone-Acetamin 5-325 mg] 1 tab PO Q6HPRN PRN 3 Days #12 tablet MDD 4 PRN Reason: Pain Methylprednisolone Packet [Medrol Dosepack] 4 mg PO UD #30 packet
[2021-10-16] MEDS ORDERED: solu-MEDROL ONE (22:26)
[2021-10-16] MEDS ORDERED: Sterile H2O 10 ml IJ ONE (22:26)
[2021-10-16] MEDS ORDERED: TORAdol 30 mg Injection ONE (22:26)
[2021-10-16 22:40] VITALS: PULSE 84
--- NOTE | 2021-10-17 09:38 | XRAY ---
Exam: 3 view left shoulder series. Comparison: [None.] Indication: Left shoulder pain; no known injury. Findings: No acute fracture or dislocation is seen. The acromioclavicular joint appears unremarkable. No other focal bone lesion is seen. The left clavicle is intact. No abnormal soft tissue calcifications are seen. Impression: 1. No acute fracture, dislocation, or other bone or joint abnormality is radiographically manifest..
== END 2021-10-16 22:40 | disposition home or self-care (01) ==
LOC: ED 20:15
DX: M75.52 Bursitis of left shoulder (principal); M25.512 Pain in left shoulder; Z79.899 Other long term (current) drug therapy; Z28.310 Unvaccinated for COVID-19; Z79.891 Long term (current) use of opiate analgesic; Z79.52 Long term (current) use of systemic steroids
CPT/HCPCS: 73030; 96372; 99284; J1885; J2930

== ENCOUNTER 2022-02-09 08:42 | Emergency (ER) | payer SELFPAY ==
--- NOTE | 2022-02-09 08:43 | ERPHSYRPT ---
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 It also radiates into her back on the left side. She has not noticed any vaginal discharge of any kind. She has not had any dysuria or hematuria. She has had no rectal bleeding. She has a history of ovarian cyst in the past. She was scheduled to have an outpatient ultrasound to evaluate the ovaries this past Friday but did not undergo that test. She has had no fevers. She denies chest pain and she denies shortness of breath. Timing/Duration: today Quality: sharpness, stabbing Abdominal Pain Onset Location: LLQ, suprapubic (Left) Pain Radiation: flank Severity of Pain-Max: moderate (Left) Severity of Pain-Current: moderate Modifying Factors: Improves With: nothing Associated Symptoms: denies symptoms Previous symptoms: no prior history Allergies/Adverse Reactions: No Known Drug Allergies Allergy (Verified 10/16/21 20:48) Home Medications: Pnv 119/Iron Fum/Folic Acid [ 19 Tablet] 1 each PO DAILY 02/09/22 [History] Hx Tetanus, Diphtheria Vaccination/Date Given: Yes Hx Influenza Vaccination/Date Given: Yes Hx Pneumococcal Vaccination/Date Given: No Travel Risk - International Travel Have you traveled outside of the country in past 3 weeks: No - Coronavirus Screening Are you exhibiting any of the following symptoms?: No Close contact with a COVID-19 positive Pt in past 14-21 Days: No - Vaccine Status Have you recieved a Covid-19 vaccination: No - Review of Systems Constitutional: No Symptoms Eyes: No Symptoms Ears, Nose, & Throat: No Symptoms Respiratory: No Symptoms Cardiac: No Symptoms Abdominal/Gastrointestinal: Abdominal Pain (Left lower quadrant/left suprapubic region), No Nausea, No Vomiting, No Diarrhea, No Constipation Genitourinary Symptoms: No Symptoms Musculoskeletal: No Symptoms Skin: No Symptoms Neurological: No Symptoms Psychological: No Symptoms Endocrine: No Symptoms Hematologic/Lymphatic: No Symptoms Immunological/Allergic: No Symptoms All Other Systems: Reviewed and Negative - Past Medical History Pertinent Past Medical History: Yes Neurological History: Migraines ENT History: No Pertinent History Cardiac History: No Pertinent History Respiratory History: No Pertinent History Endocrine Medical History: No Pertinent History Musculoskeletal History: No Pertinent History GI Medical History: No Pertinent History History: No Pertinent History Psycho-Social History: Anxiety, Depression Female Reproductive Disorders: No Pertinent History - Past Surgical History Past Surgical History: Yes Neuro Surgical History: No Pertinent History Cardiac: No Pertinent History Respiratory: No Pertinent History Gastrointestinal: No Pertinent History Genitourinary: No Pertinent History Musculoskeletal: No Pertinent History Female Surgical History: No Pertinent History Other Surgical History: tonsilectomy. ovarian cyst - Social History Smoking Status: Never smoker Exposure to second hand smoke: No Drug Use: none Patient Lives Alone: No Significant Family History: no pertinent family hx - Nursing Vital Signs Nursing Vital Signs: Initial Vital Signs Temperature 96.6 F 02/09/22 08:49 Pulse Rate 115 H 02/09/22 08:49 Respiratory Rate 22 02/09/22 08:49 Blood Pressure 169/102 02/09/22 08:49 O2 Sat by Pulse Oximetry 99 02/09/22 08:49 Pain Scale Pain Intensity 4 - Physical Exam General Appearance: mild distress, alert, anxiety, obese Eye Exam: PERRL/EOMI, eyes nml inspection Ears, Nose, Throat Exam: normal ENT inspection, moist mucous membranes Neck Exam: normal inspection, non-tender, supple, full range of motion Respiratory Exam: normal breath sounds, lungs clear, airway intact, No chest t enderness, No respiratory distress Cardiovascular Exam: regular rate/rhythm, normal heart sounds, normal peripheral pulses Gastrointestinal/Abdomen Exam: soft, normal bowel sounds, tenderness (Left lower quadrant), guarding (Lower quadrant), rebound (Left lower quadrant) Pelvic Exam: not done Rectal Exam: not done Back Exam: normal inspection, normal range of motion, CVA tenderness, No vertebral tenderness (Left) Extremity Exam: normal inspection, normal range of motion, pelvis stable Neurologic Exam: alert, oriented x 3, cooperative, salt refiner II-XII nml as tested, normal mood/affect, nml cerebellar function, nml station & gait, sensation nml Skin Exam: normal color, warm, dry Lymphatic Exam: No adenopathy SpO2 Interpretation: normal O2 Delivery: Room Air Ordered Tests: Active Orders 24 hr Category Date Time Status IV Insertion STAT Care 02/09/22 08:55 Active ABDOMEN AND PELVIS W/0 CONTRAS [CT] Stat Exams 02/09/22 08:55 Taken AMYLASE Stat Lab 02/09/22 08:55 Completed CBC W DIFF Stat Lab 02/09/22 08:55 Completed CMP Stat Lab 02/09/22 08:55 Completed CULTURE,URINE Stat Lab 02/09/22 09:02 Received HCG QUALITATIVE,SERUM Stat Lab 02/09/22 Completed LIPASE Stat Lab 02/09/22 08:55 Completed UA W/RFX CULTURE Stat Lab 02/09/22 09:02 Completed Medication Summary Discontinued Medications Generic Name Dose Route Start Last Admin Trade Name Hardeepq PRN Reason Stop Dose Admin Ketorolac Tromethamine 30 mg 02/09/22 08:55 02/09/22 09:05 Ketorolac Tromethamine 30 Mg/Ml Inj IV 02/09/22 08:56 30 mg STAT ONE Administration Ketorolac Tromethamine Confirm 02/09/22 09:03 Ketorolac Tromethamine 30 Mg/Ml Inj Administered 02/09/22 09:04 Dose 30 mg .ROUTE .STK-MED ONE Morphine Sulfate 4 mg 02/09/22 08:55 02/09/22 09:06 Morphine Sulfate 4 Mg/Ml Injection IV 02/09/22 08:56 4 mg STAT ONE Administration Morphine Sulfate Confirm 02/09/22 09:03 Morphine Sulfate 4 Mg/Ml Injection Administered 02/09/22 09:04 Dose 4 mg .ROUTE .STK-MED ONE Ondansetron HCl 4 mg 02/09/22 08:55 02/09/22 09:04 Ondansetron Hcl 4 Mg/2 Ml Vial IV 02/09/22 08:56 4 mg STAT ONE Administration Ondansetron HCl Confirm 02/09/22 09:03 Ondansetron Hcl 4 Mg/2 Ml Vial Administered 02/09/22 09:04 Dose 4 mg .ROUTE .STK-MED ONE Lab/Rad Data: Laboratory Result Diagrams 02/09/22 08:55 02/09/22 08:55 Laboratory Results 02/09/22 02/09/22 02/09/22 Range/Units Unknown 09:02 08:55 WBC (4.0-10.5) x10^3/uL RBC (4.1-5.4) x10^6/uL Hgb (12.0-16.0) g/dL Hct (35-47) % MCV (78-100) fL MCH (26-32) pg MCHC (32-36) g/dL RDW (11.5-14.0) % Plt Count (150-450) x10^3/uL MPV (7.5-11.0) fL Gran % (36.0-66.0) % Immature Gran % (Auto) (0.00-0.4) % Nucleat RBC Rel Count (0.00-0.1) % Eos # (Auto) (0-0.5) x10^3/uL Immature Gran # (Auto) (0.00-0.03) x10^3u/L Absolute Lymphs (auto) (1.0-4.6) x10^3/uL Absolute Monos (auto) (0.0-1.3) x10^3/uL Absolute Nucleated RBC (0.00-0.01) x10^3u/L Lymphocytes % (24.0-44.0) % Monocytes % (0.0-12.0) % Eosinophils % (0.00-5.0) % Basophils % (0.0-0.4) % Absolute Granulocytes (1.4-6.9) x10^3/uL Basophils # (0-0.4) x10^3/uL Sodium 139 (137-145) mmol/L Potassium 4.0 (3.5-5.1) mmol/L Chloride 105 (98-107) mmol/L Carbon Dioxide 29 (22-30) mmol/L Anion Gap 9 (5-15) MEQ/L BUN 10 (7-17) mg/dL Creatinine 0.61 (0.52-1.04) mg/dL Estimated GFR > 60.0 ML/MIN Glucose 96 (74-106) mg/dL Calcium 9.1 (8.4-10.2) mg/dL Total Bilirubin 0.50 (0.2-1.3) mg/dL AST 29 (14-36) U/L ALT 25 (0-35) U/L Alkaline Phosphatase 104 (38-126) U/L Serum Total Protein 7.2 (6.3-8.2) g/dL Albumin 4.1 (3.5-5.0) g/dL Amylase 71 (30-110) U/L Lipase 71 (23-300) U/L Serum , Qual NEGATIVE (Negative) Urinalys Dipstick Clnc MAIN LAB Urine Color YELLOW (YELLOW) Urine Appearance HAZY (CLEAR) Urine pH 6.0 (5-6) Ur Specific [place] 1.025 (1.005-1.025) POC Urine Protein Conf 100 (Negative) Urine Ketones TRACE (NEGATIVE) Urine Nitrite NEGATIVE (NEGATIVE) Urine Bilirubin SMALL (NEGATIVE) Urine Urobilinogen 0.2 (0-1) mg/dL Urine Leukocytes TRACE (NEGATIVE) Urine WBC (Auto) 16-25 (0-5) /HPF Urine RBC (Auto) 3-5 (0-2) /HPF U Hyaline Cast (Auto) 0-2 (0-2) /LPF U Epithel Cells (Auto) FEW (FEW) /HPF Urine Bacteria (Auto) FEW (NEGATIVE) /HPF Urine RBC NEGATIVE (0-5) Juni/ul Other Casts (Auto) 0-2 (NEGATIVE) /LPF Urine Mucus (Auto) MANY (NEGATIVE) /HPF Ur Culture Indicated? YES Urine Glucose NEGATIVE (NEGATIVE) mg/dL 02/09/22 Range/Units 08:55 WBC 10.0 (4.0-10.5) x10^3/uL RBC 4.74 (4.1-5.4) x10^6/uL Hgb 13.0 (12.0-16.0) g/dL Hct 41.4 (35-47) % MCV 87.3 (78-100) fL MCH 27.4 (26-32) pg MCHC 31.4 L (32-36) g/dL RDW 12.9 (11.5-14.0) % Plt Count 312 (150-450) x10^3/uL MPV 10.0 (7.5-11.0) fL Gran % 51.3 (36.0-66.0) % Immature Gran % (Auto) 0.4 (0.00-0.4) % Nucleat RBC Rel Count 0.0 (0.00-0.1) % Eos # (Auto) 0.16 (0-0.5) x10^3/uL Immature Gran # (Auto) 0.04 H (0.00-0.03) x10^3u/L Absolute Lymphs (auto) 3.95 (1.0-4.6) x10^3/uL Absolute Monos (auto) 0.68 (0.0-1.3) x10^3/uL Absolute Nucleated RBC 0.00 (0.00-0.01) x10^3u/L Lymphocytes % 39.5 (24.0-44.0) % Monocytes % 6.8 (0.0-12.0) % Eosinophils % 1.6 (0.00-5.0) % Basophils % 0.4 (0.0-0.4) % Absolute Granulocytes 5.12 (1.4-6.9) x10^3/uL Basophils # 0.04 (0-0.4) x10^3/uL Sodium (137-145) mmol/L Potassium (3.5-5.1) mmol/L Chloride (98-107) mmol/L Carbon Dioxide (22-30) mmol/L Anion Gap (5-15) MEQ/L BUN (7-17) mg/dL Creatinine (0.52-1.04) mg/dL Estimated GFR ML/MIN Glucose (74-106) mg/dL Calcium (8.4-10.2) mg/dL Total Bilirubin (0.2-1.3) mg/dL AST (14-36) U/L ALT (0-35) U/L Alkaline Phosphatase (38-126) U/L Serum Total Protein (6.3-8.2) g/dL Albumin (3.5-5.0) g/dL Amylase (30-110) U/L Lipase (23-300) U/L Serum , Qual (Negative) Urinalys Dipstick Clnc Urine Color (YELLOW) Urine Appearance (CLEAR) Urine pH (5-6) Ur Specific [place] (1.005-1.025) POC Urine Protein Conf (Negative) Urine Ketones (NEGATIVE) Urine Nitrite (NEGATIVE) Urine Bilirubin (NEGATIVE) Urine Urobilinogen (0-1) mg/dL Urine Leukocytes (NEGATIVE) Urine WBC (Auto) (0-5) /HPF Urine RBC (Auto) (0-2) /HPF U Hyaline Cast (Auto) (0-2) /LPF U Epithel Cells (Auto) (FEW) /HPF Urine Bacteria (Auto) (NEGATIVE) /HPF Urine RBC (0-5) Juni/ul Other Casts (Auto) (NEGATIVE) /LPF Urine Mucus (Auto) (NEGATIVE) /HPF Ur Culture Indicated? Urine Glucose (NEGATIVE) mg/dL - Progress Progress Note: 02/09/22 11:26 CAT scan of the abdomen pelvis without contrast shows small amount of pelvic fluid. No evidence of any acute intra-abdominal or intrapelvic pathology or process. Counseled pt/family regarding: lab results, diagnosis, need for follow-up, rad results - Departure Departure Disposition: Home Clinical Impression: Left lower quadrant abdominal pain, Urinary tract infection Condition: Stable Critical Care Time: No Referrals: RUTH SIMS MD [Primary Care Provider] - Follow up/PCP as directed Additional Instructions: Drink plenty fluids. Use Tylenol and ibuprofen for pain control. Take your antibiotics as prescribed. 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 Prescriptions: Ciprofloxacin [Cipro 500 MG] 500 mg PO BID #14 tablet
[2022-02-09] MEDS ORDERED: MORPHINE SULFATE 4 MG INJ IV ONE (08:55)
[2022-02-09] MEDS ORDERED: TORAdol 30 mg Injection IV ONE (08:55)
[2022-02-09] MEDS ORDERED: Zofran 4 MG/2 ML VIAL IV ONE (08:55)
[2022-02-09] MEDS ORDERED: MORPHINE SULFATE 4 MG INJ ONE (09:03)
[2022-02-09] MEDS ORDERED: TORAdol 30 mg Injection ONE (09:03)
[2022-02-09] MEDS ORDERED: Zofran 4 MG/2 ML VIAL ONE (09:03)
[2022-02-09 09:16] LABS: Absolute Neutrophil Ct (ANC) 5.12 x10^3/uL (1.4-6.9); Basophil (Absolute #) 0.04 x10^3/uL (0-0.4); Eosinophil % 1.6 % (0.00-5.0); Eosinophil (Absolute #) 0.16 x10^3/uL (0-0.5); Hematocrit 41.4 % (35-47); Lymphocyte (Absolute #) 3.95 x10^3/uL (1.0-4.6); Lymphocytes % 39.5 % (24.0-44.0); Mean Cell Volume 87.3 fL (78-100); Mean Corpuscular Hemoglobin 27.4 pg (26-32); Mean Corpuscular Hgb Concent. 31.4 g/dL (32-36); Monocyte (Absolute #) 0.68 x10^3/uL (0.0-1.3); Monocytes % 6.8 % (0.0-12.0); Neutrophil % 51.3 % (36.0-66.0); Platelet Count 312 x10^3/uL (150-450); Red Blood Count 4.74 x10^6/uL (4.1-5.4); Red Cell Distribution Width 12.9 % (11.5-14.0)
[2022-02-09 09:27] LABS: ALBUMIN 4.1 g/dL (3.5-5.0); ALKALINE PHOSPHATASE 104 U/L (38-126); AMYLASE 71 U/L (30-110); BLOOD UREA NITROGEN 10 mg/dL (7-17); CHLORIDE 105 mmol/L (98-107); Calcium 9.1 mg/dL (8.4-10.2); Carbon Dioxide 29 mmol/L (22-30); Creatinine 1 0.61 mg/dL (0.52-1.04); EST GLOMERULAR FILTRATION RATE > 60.0 ML/MIN; Glucose 96 mg/dL (74-106); LIPASE 71 U/L (23-300); SGOT/AST 29 U/L (14-36); SGPT/ALT 25 U/L (0-35); SODIUM 139 mmol/L (137-145); Total Protein 7.2 g/dL (6.3-8.2)
[2022-02-09 09:30] LABS: ANION GAP 9 MEQ/L (5-15)
[2022-02-09 11:33] LABS: Appearance HAZY (CLEAR); Bacteria FEW /HPF (NEGATIVE); Bilirubin SMALL (NEGATIVE); Epithelial Cells FEW /HPF (FEW); Glucose NEGATIVE (NEGATIVE); Hyaline Casts 0-2 /LPF (0-2); Mucus MANY /HPF (NEGATIVE)
[2022-02-09 11:34] LABS: Dipstick done @ ? MAIN LAB; Ketones TRACE (NEGATIVE); Nitrite NEGATIVE (NEGATIVE); Protein,Urine Dip 100 (Negative); RBC NEGATIVE Ery/ul (0-5); Specific Gravity 1.025 (1.005-1.025); Urine Cultured Indicated? YES; Urobilinogen 0.2 mg/dL (0-1)
[2022-02-09] MEDS ORDERED: ROCEPHIN 1 Gm-D5w 50 ml Bag** 1 G/50 ML IVPB IV STA (11:42)
[2022-02-09] MEDS ORDERED: ROCEPHIN 1 Gm-D5w 50 ml Bag** 1 G/50 ML IVPB IV ONE (11:44)
[2022-02-09 12:21] VITALS: BP 151/82; PULSE 77; O2SAT 97
--- NOTE | 2022-02-09 20:10 | XRAY ---
Indication: Severe left lower quadrant pain Multiple contiguous axial images obtained through the abdomen and pelvis without contrast. Comparison: April 07, 2019 Lung bases clear. Heart not enlarged again with tiny right infrahilar calcified granulomas. Noncontrasted stomach and bowel loops nonobstructed again with normal appendix. No free fluid/air. Fatty hepatomegaly measuring 20.2 cm. Spleen remains enlarged measuring 12.4 cm. New 3 x 2 x 1.9 cm fatty mass superior and right lateral to the uterus favoring dermoid. Remaining liver, gallbladder, pancreas, spleen, adrenal glands, kidneys, ureters, bladder, uterus, and aorta are unremarkable for noncontrast exam. Osseous structures intact. No ventral or inguinal hernias. Impression: 1. New right adnexa fatty mass favoring dermoid. 2. Chronic findings including fatty hepatomegaly and splenomegaly. 3. Remaining CT abdomen/pelvis without contrast exam is negative. Comment: Preliminary interpretation made by C. No critical discrepancy.
== END 2022-02-09 12:22 | disposition home or self-care (01) ==
LOC: ED 08:42
DX: N39.0 Urinary tract infection, site not specified (principal); R10.32 Left lower quadrant pain; D27.0 Benign neoplasm of right ovary; R10.2 Pelvic and perineal pain; Z28.310 Unvaccinated for COVID-19
CPT/HCPCS: 36000; 36415; 74176; 80053; 81015; 82150; 83690; 84703; 85025; 87086; 96365; 96374; 96375; 99284; J0696; J1885; J2270; J2405

== ENCOUNTER 2022-08-18 19:44 | Emergency (ER) | payer SELFPAY ==
--- NOTE | 2022-08-18 20:41 | ERPHSYRPT ---
- History of Present Illness Time Seen by Provider: 08/18/22 20:41 Historian: patient Exam Limitations: no limitations Physician History: Lower abdominal pain today. No fever or other sx. Hx ovarian cyst. Timing/Duration: today Activities at Onset: none Quality: cramping Abdominal Pain Onset Location: suprapubic Pain Radiation: no radiation Severity of Pain-Max: moderate Severity of Pain-Current: moderate Modifying Factors: Improves With: nothing Associated Symptoms: denies symptoms Previous symptoms: no prior history Allergies/Adverse Reactions: No Known Drug Allergies Allergy (Verified 08/18/22 20:47) Hx Tetanus, Diphtheria Vaccination/Date Given: Yes Hx Influenza Vaccination/Date Given: Yes Hx Pneumococcal Vaccination/Date Given: No Travel Risk - Vaccine Status Have you recieved a Covid-19 vaccination: No - Review of Systems Constitutional: No Symptoms Eyes: No Symptoms Ears, Nose, & Throat: No Symptoms Respiratory: No Symptoms Cardiac: No Symptoms Abdominal/Gastrointestinal: No Symptoms Genitourinary Symptoms: No Symptoms Musculoskeletal: No Symptoms Skin: No Symptoms Neurological: No Symptoms Psychological: No Symptoms Endocrine: No Symptoms Hematologic/Lymphatic: No Symptoms Immunological/Allergic: No Symptoms All Other Systems: Reviewed and Negative - Past Medical History Pertinent Past Medical History: Yes Neurological History: Migraines ENT History: No Pertinent History Cardiac History: No Pertinent History Respiratory History: No Pertinent History Endocrine Medical History: No Pertinent History Musculoskeletal History: No Pertinent History GI Medical History: No Pertinent History History: No Pertinent History Psycho-Social History: Anxiety, Depression Female Reproductive Disorders: No Pertinent History - Past Surgical History Past Surgical History: Yes Neuro Surgical History: No Pertinent History Cardiac: No Pertinent History Respiratory: No Pertinent History Gastrointestinal: No Pertinent History Genitourinary: No Pertinent History Musculoskeletal: No Pertinent History Female Surgical History: No Pertinent History Other Surgical History: tonsilectomy. ovarian cyst - Social History Smoking Status: Never smoker Exposure to second hand smoke: No Drug Use: none Patient Lives Alone: No Significant Family History: no pertinent family hx - Nursing Vital Signs Nursing Vital Signs: Initial Vital Signs Pulse Rate 96 H 08/18/22 20:41 Respiratory Rate 20 08/18/22 20:41 Blood Pressure 131/70 08/18/22 20:41 O2 Sat by Pulse Oximetry 97 08/18/22 20:41 Pain Scale Pain Intensity 2 - Physical Exam General Appearance: mild distress Eye Exam: PERRL/EOMI Ears, Nose, Throat Exam: normal ENT inspection Neck Exam: normal inspection Respiratory Exam: normal breath sounds, lungs clear Cardiovascular Exam: regular rate/rhythm, normal heart sounds Gastrointestinal/Abdomen Exam: soft, normal bowel sounds, tenderness (suprapubic) Pelvic Exam: deferred Rectal Exam: deferred, tenderness Back Exam: normal inspection, normal range of motion, No CVA tenderness Extremity Exam: normal inspection, normal range of motion Neurologic Exam: alert, oriented x 3, cooperative Skin Exam: normal color, warm, dry - Course Nursing assessment & vital signs reviewed: Yes - CT Exams Abdomen/Pelvis CT Interpretation: Tele-radiologist Report, Other (ovarian cyst - chronic by hx) Ordered Tests: Active Orders 24 hr Category Date Time Status ABDOMEN AND PELVIS W/0 CONTRAS [CT] Stat Exams 08/18/22 21:55 Completed CBC W DIFF Stat Lab 08/18/22 21:10 Completed CMP Stat Lab 08/18/22 21:10 Completed CULTURE,URINE Stat Lab 08/18/22 21:10 Received HCG QUALITATIVE, URINE Stat Lab 08/18/22 21:10 Completed UA W/RFX UR CULTURE Stat Lab 08/18/22 21:10 Completed Medication Summary Generic Name Dose Route Start Last Admin Trade Name Freq PRN Reason Stop Dose Admin Ceftriaxone Sodium/Dextrose 1 g in 50 mls @ 100 mls/hr 08/18/22 23:40 08/18/22 23:51 Rocephin 1 Gm-D5w 50 Ml Bag IV 08/19/22 00:09 100 mls/hr STAT STA 100 mls/hr Administration Phenazopyridine HCl 200 mg 08/19/22 23:41 08/18/22 23:50 Phenazopyridine Hcl 200 Mg Tablet PO 08/19/22 23:42 200 mg QID ONE Administration Discontinued Medications Generic Name Dose Route Start Last Admin Trade Name Freq PRN Reason Stop Dose Admin Ceftriaxone Sodium/Dextrose Confirm 08/18/22 23:49 Rocephin 1 Gm-D5w 50 Ml Bag Administered 08/18/22 23:50 Dose 1 g in 50 mls @ ud IV .STK-MED ONE Phenazopyridine HCl Confirm 08/18/22 23:49 Phenazopyridine Hcl 200 Mg Tablet Administered 08/18/22 23:50 Dose 200 mg .ROUTE .STK-MED ONE Lab/Rad Data: Laboratory Result Diagrams 08/18/22 21:10 08/18/22 21:10 Laboratory Results 08/18/22 08/18/22 08/18/22 Range/Units 21:10 21:10 21:10 WBC 10.9 H (4.0-10.5) x10^3/uL RBC 4.56 (4.1-5.4) x10^6/uL Hgb 12.8 (12.0-16.0) g/dL Hct 39.4 (35-47) % MCV 86.4 (78-100) fL MCH 28.1 (26-32) pg MCHC 32.5 (32-36) g/dL RDW 12.7 (11.5-14.0) % Plt Count 322 (150-450) x10^3/uL MPV 10.7 (7.5-11.0) fL Gran % 61.5 (36.0-66.0) % Immature Gran % (Auto) 0.3 (0.00-0.4) % Nucleat RBC Rel Count 0.0 (0.00-0.1) % Eos # (Auto) 0.12 (0-0.5) x10^3/uL Immature Gran # (Auto) 0.03 (0.00-0.03) x10^3u/L Absolute Lymphs (auto) 3.14 (1.0-4.6) x10^3/uL Absolute Monos (auto) 0.84 (0.0-1.3) x10^3/uL Absolute Nucleated RBC 0.00 (0.00-0.01) x10^3u/L Lymphocytes % 28.9 (24.0-44.0) % Monocytes % 7.7 (0.0-12.0) % Eosinophils % 1.1 (0.00-5.0) % Basophils % 0.5 (0.0-0.4) % Absolute Granulocytes 6.68 (1.4-6.9) x10^3/uL Basophils # 0.05 (0-0.4) x10^3/uL Sodium 139 (137-145) mmol/L Potassium 4.0 (3.5-5.1) mmol/L Chloride 101 (98-107) mmol/L Carbon Dioxide 30 (22-30) mmol/L Anion Gap 11.8 (5-15) MEQ/L BUN 9 (7-17) mg/dL Creatinine 0.66 (0.52-1.04) mg/dL Estimated GFR > 60.0 ML/MIN Glucose 90 (74-106) mg/dL Calcium 9.2 (8.4-10.2) mg/dL Total Bilirubin 0.60 (0.2-1.3) mg/dL AST 30 (14-36) U/L ALT 27 (0-35) U/L Alkaline Phosphatase 102 (38-126) U/L Serum Total Protein 7.8 (6.3-8.2) g/dL Albumin 4.2 (3.5-5.0) g/dL Urine Color (Yellow) Urine Appearance (Clear) Urine pH (4.6-8.0) Ur Specific [place] (1.005-1.030) Urine Protein (Negative) Urine Glucose (UA) (Negative) mg/dL Urine Ketones (Negative) Urine Blood (Negative) Urine Nitrite (Negative) Urine Bilirubin (Negative) Urine Urobilinogen (0.2) mg/dL Ur Leukocyte Esterase (Negative) U Hyaline Cast (Auto) (0-2) /LPF Urine Microscopic RBC (0-5) /HPF Urine Microscopic WBC (0-5) /HPF Ur Epithelial Cells (None Seen) /HPF Urine Bacteria (None Seen) /HPF Urine Culture Reflexed (NO) Urine HCG, Qual NEGATIVE (NEGATIVE) 08/18/22 Range/Units 21:10 WBC (4.0-10.5) x10^3/uL RBC (4.1-5.4) x10^6/uL Hgb (12.0-16.0) g/dL Hct (35-47) % MCV (78-100) fL MCH (26-32) pg MCHC (32-36) g/dL RDW (11.5-14.0) % Plt Count (150-450) x10^3/uL MPV (7.5-11.0) fL Gran % (36.0-66.0) % Immature Gran % (Auto) (0.00-0.4) % Nucleat RBC Rel Count (0.00-0.1) % Eos # (Auto) (0-0.5) x10^3/uL Immature Gran # (Auto) (0.00-0.03) x10^3u/L Absolute Lymphs (auto) (1.0-4.6) x10^3/uL Absolute Monos (auto) (0.0-1.3) x10^3/uL Absolute Nucleated RBC (0.00-0.01) x10^3u/L Lymphocytes % (24.0-44.0) % Monocytes % (0.0-12.0) % Eosinophils % (0.00-5.0) % Basophils % (0.0-0.4) % Absolute Granulocytes (1.4-6.9) x10^3/uL Basophils # (0-0.4) x10^3/uL Sodium (137-145) mmol/L Potassium (3.5-5.1) mmol/L Chloride (98-107) mmol/L Carbon Dioxide (22-30) mmol/L Anion Gap (5-15) MEQ/L BUN (7-17) mg/dL Creatinine (0.52-1.04) mg/dL Estimated GFR ML/MIN Glucose (74-106) mg/dL Calcium (8.4-10.2) mg/dL Total Bilirubin (0.2-1.3) mg/dL AST (14-36) U/L ALT (0-35) U/L Alkaline Phosphatase (38-126) U/L Serum Total Protein (6.3-8.2) g/dL Albumin (3.5-5.0) g/dL Urine Color Yellow (Yellow) Urine Appearance Cloudy A (Clear) Urine pH 6.0 (4.6-8.0) Ur Specific [place] 1.015 (1.005-1.030) Urine Protein Negative (Negative) Urine Glucose (UA) Negative (Negative) mg/dL Urine Ketones Negative (Negative) Urine Blood Negative (Negative) Urine Nitrite Negative (Negative) Urine Bilirubin Negative (Negative) Urine Urobilinogen 1.0 A (0.2) mg/dL Ur Leukocyte Esterase Small A (Negative) U Hyaline Cast (Auto) NONE SEEN (0-2) /LPF Urine Microscopic RBC 0-2 (0-5) /HPF Urine Microscopic WBC 21-50 A (0-5) /HPF Ur Epithelial Cells Many A (None Seen) /HPF Urine Bacteria Moderate A (None Seen) /HPF Urine Culture Reflexed YES (NO) Urine HCG, Qual (NEGATIVE) - Progress Progress: improved Progress Note: 08/19/22 00:09 UTI, rocephin, Rx Counseled pt/family regarding: lab results, diagnosis, need for follow-up, rad results Medical Desision Making - Independent Historian Additional History obtained from: Spouse - Diagnostic Testing Diagnostic test were ordered, analyzed, and reviewed by me: Yes Radiological Interpretation: Teleradiologist Report - Risk of complications Low Risk: Low risk of morbidity from additional dx testing or treatment - Departure Departure Disposition: Home Clinical Impression: UTI (urinary tract infection) Qualifiers: Urinary tract infection type: acute cystitis Hematuria presence: without hematuria Qualified Code(s): N30.00 - Acute cystitis without hematuria Condition: Stable Critical Care Time: No Referrals: RUTH SIMS MD [Primary Care Provider] - Follow up/PCP as directed Instructions: Urinary Tract Infection, Adult ED Additional Instructions: Drink more water, antibiotic, recheck with PCP 3 days Prescriptions: Nitrofurantoin Macro 100 mg [Macrobid 100MG Capsule] 100 mg PO BID #14 cap
[2022-08-18 21:12] LABS: Absolute Neutrophil Ct (ANC) 6.68 x10^3/uL (1.4-6.9); BASOPHIL % 0.5 % (0.0-0.4); Basophil (Absolute #) 0.05 x10^3/uL (0-0.4); Eosinophil % 1.1 % (0.00-5.0); Eosinophil (Absolute #) 0.12 x10^3/uL (0-0.5); Hematocrit 39.4 % (35-47); Hemoglobin 12.8 g/dL (12.0-16.0); IMMATURE GRAN # 0.03 x10^3u/L (0.00-0.03); IMMATURE GRAN % 0.3 % (0.00-0.4); Lymphocyte (Absolute #) 3.14 x10^3/uL (1.0-4.6); Lymphocytes % 28.9 % (24.0-44.0); Mean Cell Volume 86.4 fL (78-100); Mean Corpuscular Hemoglobin 28.1 pg (26-32); Mean Corpuscular Hgb Concent. 32.5 g/dL (32-36); Mean Platelet Volume 10.7 fL (7.5-11.0); Monocyte (Absolute #) 0.84 x10^3/uL (0.0-1.3); Monocytes % 7.7 % (0.0-12.0); Neutrophil % 61.5 % (36.0-66.0); Platelet Count 322 x10^3/uL (150-450); Red Blood Count 4.56 x10^6/uL (4.1-5.4); Red Cell Distribution Width 12.7 % (11.5-14.0); White Blood Count 10.9 x10^3/uL (4.0-10.5)
[2022-08-18 21:18] LABS: HCG URINE TEST NEGATIVE (NEGATIVE)
[2022-08-18 21:24] LABS: Appearance Cloudy (Clear); Bacteria Moderate /HPF (None Seen); Bilirubin Negative (Negative); Blood Negative (Negative); Epithelial Cells Many /HPF (None Seen); Glucose, Urine Negative (Negative); Hyaline Casts NONE SEEN /LPF (0-2); Ketones Negative (Negative); Leukocyte Esterase Small (Negative); Nitrite Negative (Negative); Protein,Urine Dip Negative (Negative); RBC 0-2 /HPF (0-5); Specific Gravity 1.015 (1.005-1.030); WBC 21-50 /HPF (0-5)
[2022-08-18 21:25] LABS: ADD URINE CULTURE? YES (NO)
[2022-08-18 21:29] LABS: ALBUMIN 4.2 g/dL (3.5-5.0); ALKALINE PHOSPHATASE 102 U/L (38-126); ANION GAP 11.8 MEQ/L (5-15); BLOOD UREA NITROGEN 9 mg/dL (7-17); CHLORIDE 101 mmol/L (98-107); Calcium 9.2 mg/dL (8.4-10.2); Carbon Dioxide 30 mmol/L (22-30); Creatinine 1 0.66 mg/dL (0.52-1.04); EST GLOMERULAR FILTRATION RATE > 60.0 ML/MIN; Glucose 90 mg/dL (74-106); SGOT/AST 30 U/L (14-36); SGPT/ALT 27 U/L (0-35); SODIUM 139 mmol/L (137-145); Total Protein 7.8 g/dL (6.3-8.2)
--- NOTE | 2022-08-18 23:10 | XRAY ---
CLINICAL HISTORY:Abdomen pain; COMPARISON:None; TECHNIQUES:CT of the abdomen and pelvis was performed with axial images as well as sagittal and coronal reconstruction images without intravenous contrast. DLP: 1061.64 mGy*cm. CTDI: 19.59 mGy; FINDINGS: The liver is mildly enlarged and measures 18 cm in CC dimension. Diffusely low attenuation of liver due to hepatic steatosis. No focal hepatic lesion is seen. No intrahepatic or extrahepatic bile duct dilation. Gallbladder is contracted but no stones, wall thickening or pericholecystic inflammatory changes or fluid. Unremarkable appearing pancreas. No pancreatic mass or ductal dilatation is seen. Unremarkable appearing spleen. The adrenal glands are normal. The kidneys appear unremarkable with no cysts, calculi, masses or hydronephrosis. The ureters are normal with no stones. Unremarkable abdominal aorta without specific evidence of aneurysm or dissection. IVC is normal. The stomach appears unremarkable. Unremarkable appearing duodenum. Small Bowel and colon are non-distended with no abnormality. No free air and no ascites. No free intraperitoneal air is seen. Bladder is unremarkable with no stones. Anteverted uterus is noted. A fat-containing right adnexal lesion with focal peripheral calcification is noted measuring 3.2 x 2.5 x 2.2 cm likely a dermoid cyst. No calcifications are noted. No osseous lesion seen in the visualized skeleton. IMPRESSION: Hepatic steatosis with mild hepatomegaly. Right adnexal dermoid cyst (3.2 x 2.5 x 2.2 cm). Ultrasound/MR correlation may be considered. Electronically Signed by: Juana Paez MD. (08/18/2022 22:06:46 ASSEMBLY MANAGER)
[2022-08-18] MEDS ORDERED: ROCEPHIN 1 Gm-D5w 50 ml Bag** 1 G/50 ML IVPB IV STA (23:40)
[2022-08-18] MEDS ORDERED: PYRIDIUM 200 MG ONE (23:49)
[2022-08-18] MEDS ORDERED: ROCEPHIN 1 Gm-D5w 50 ml Bag** 1 G/50 ML IVPB IV ONE (23:49)
[2022-08-19 00:27] VITALS: BP 127/70; PULSE 97; O2SAT 99
[2022-08-19] MEDS ORDERED: PYRIDIUM 200 MG PO ONE (23:41)
== END 2022-08-19 00:26 | disposition home or self-care (01) ==
LOC: ED 19:44
DX: N30.00 Acute cystitis without hematuria (principal); R10.30 Lower abdominal pain, unspecified; Z28.310 Unvaccinated for COVID-19
CPT/HCPCS: 36415; 74176; 80053; 81001; 81025; 85025; 87086; 96365; 99283; J0696; A9270-GY

== ENCOUNTER 2023-02-10 20:08 | Emergency (ER) | payer SELFPAY ==
[2023-02-10 20:25] VITALS: TEMP 98.4
[2023-02-10] MEDS ORDERED: SUBLIMAZE 100 MCG/2 ML IV ONE ×2 (20:32→22:06)
[2023-02-10] MEDS ORDERED: Zofran 4 MG/2 ML VIAL IV ONE (20:32)
[2023-02-10] MEDS ORDERED: Zofran 4 MG/2 ML VIAL ONE (20:36)
[2023-02-10 20:37] LABS: Absolute Neutrophil Ct (ANC) 6.07 x10^3/uL (1.4-6.9); BASOPHIL % 0.4 % (0.0-0.4); Basophil (Absolute #) 0.04 x10^3/uL (0-0.4); Eosinophil (Absolute #) 0.11 x10^3/uL (0-0.5); Hematocrit 39.9 % (35-47); Hemoglobin 12.8 g/dL (12.0-16.0); IMMATURE GRAN # 0.03 x10^3u/L (0.00-0.03); IMMATURE GRAN % 0.3 % (0.00-0.4); Lymphocyte (Absolute #) 3.75 x10^3/uL (1.0-4.6); Lymphocytes % 35.1 % (24.0-44.0); Mean Cell Volume 87.3 fL (78-100); Mean Corpuscular Hgb Concent. 32.1 g/dL (32-36); Mean Platelet Volume 10.3 fL (7.5-11.0); Monocyte (Absolute #) 0.67 x10^3/uL (0.0-1.3); Monocytes % 6.3 % (0.0-12.0); Neutrophil % 56.9 % (36.0-66.0); Platelet Count 312 x10^3/uL (150-450); Red Blood Count 4.57 x10^6/uL (4.1-5.4); Red Cell Distribution Width 12.6 % (11.5-14.0); White Blood Count 10.7 x10^3/uL (4.0-10.5)
[2023-02-10] MEDS ORDERED: SUBLIMAZE 100 MCG/2 ML ONE ×2 (20:37→22:09)
--- NOTE | 2023-02-10 20:39 | ERPHSYRPT ---
- History of Present Illness Source: patient Exam Limitations: no limitations Patient Subjective Stated Complaint: pt states approx 1 hour prior to coming into er, she began having a deadache. states in the front of her head and rates 9/10 and desscribes as throbbing. has some shortness of breath and tingling in bila arms and legs after headache. Triage Nursing Assessment: pt alert and oriented, answers questions approp. pt ambulates into room with steady gait noted. respirations nonlabored with lungs cta bilat. skin warm and dry. pupils equal an dreactive. pt moves bilat upper and lower ext and wnl. Physician History: 27 yo WF w frontal RODRIGUEZ x 1 hr. Pain is described as throbbing, 9/10, and worse w bright lights. Pt has a h/o RODRIGUEZ's but states that symptoms are different. Pt has nausea wo vomiting/fever/cough/focal weakness. She does complain of "chest tightness' and dyspnea. is denied. Timing/Duration: other (1hour) Quality: throbbing Head Pain Location: frontal Severity of Pain-Max: severe Severity of Pain-Current: severe Recent Head Trauma: no recent headache/trauma, occasional headaches Modifying Factors: Improves With: exposure to light (Makes worse) Associated Symptoms: sensitive to light, No confusion, No dizziness, No fatigue, No facial pain, No fever/chills, No flushing, No light-headedness, No loss of consciousness, No nausea/vomiting, No nasal congestion, No nasal drainage, No neck pain, No numbness in legs/feet, No rash, No sweating, No scotoma, No seizures, No sinus infection, No speech problems, No stiff neck, No trouble walking, No vision changes, No visual disturbance, No weakness Previous symptoms: different symptoms Allergies/Adverse Reactions: No Known Drug Allergies Allergy (Verified 02/10/23 20:30) Home Medications: Progesterone, Micronized [Progesterone] 200 mg PO DAILY 02/10/23 [History] Hx Tetanus, Diphtheria Vaccination/Date Given: Yes Hx Influenza Vaccination/Date Given: No Hx Pneumococcal Vaccination/Date Given: No Immunizations Up to Date: Yes Travel Risk - International Travel Have you traveled outside of the country in past 3 weeks: No - Coronavirus Screening Are you exhibiting any of the following symptoms?: No Close contact with a COVID-19 positive Pt in past 14-21 Days: No - Vaccine Status Have you recieved a Covid-19 vaccination: No - Review of Systems Constitutional: No Symptoms, Malaise Eyes: No Symptoms Ears, Nose, & Throat: No Symptoms Respiratory: No Symptoms Cardiac: No Symptoms Abdominal/Gastrointestinal: No Symptoms, Nausea, Vomiting Genitourinary Symptoms: No Symptoms Musculoskeletal: No Symptoms Skin: No Symptoms Neurological: No Symptoms, Headache Psychological: No Symptoms Endocrine: No Symptoms Hematologic/Lymphatic: No Symptoms Immunological/Allergic: No Symptoms - Past Medical History Pertinent Past Medical History: Yes Neurological History: Migraines ENT History: No Pertinent History Cardiac History: No Pertinent History Respiratory History: No Pertinent History Endocrine Medical History: No Pertinent History Musculoskeletal History: No Pertinent History GI Medical History: No Pertinent History History: No Pertinent History Psycho-Social History: Anxiety, Depression Female Reproductive Disorders: No Pertinent History - Past Surgical History Past Surgical History: Yes Neuro Surgical History: No Pertinent History Cardiac: No Pertinent History Respiratory: No Pertinent History Gastrointestinal: No Pertinent History Genitourinary: No Pertinent History Musculoskeletal: No Pertinent History Female Surgical History: No Pertinent History Other Surgical History: tonsilectomy. ovarian cyst - Social History Smoking Status: Never smoker Exposure to second hand smoke: Yes Drug Use: none Patient Lives Alone: No Significant Family History: no pertinent family hx - Female History Hx Last Menstrual Period: nov 26 Hx Now: No - Nursing Vital Signs Nursing Vital Signs: Initial Vital Signs Temperature 98.4 F 02/10/23 20:09 Pulse Rate 91 H 02/10/23 20:09 Respiratory Rate 18 02/10/23 20:09 Blood Pressure 141/81 02/10/23 20:09 O2 Sat by Pulse Oximetry 100 02/10/23 20:09 Pain Scale Pain Intensity 2 Hypertensive - Physical Exam General Appearance: no apparent distress Eye Exam: PERRL/EOMI, eyes nml inspection Ears, Nose, Throat Exam: normal ENT inspection, TMs normal, pharynx normal Neck Exam: normal inspection, non-tender, supple, full range of motion, No meningismus, No mass, No Brudzinski, No Kernig's, No carotid bruit Respiratory Exam: normal breath sounds, lungs clear, airway intact, No res piratory distress Cardiovascular Exam: regular rate/rhythm, normal heart sounds, normal peripheral pulses, capillary refill <2 sec, No murmur Gastrointestinal/Abdominal Exam: soft, normal bowel sounds, No tenderness Back Exam: normal inspection, normal range of motion, No CVA tenderness Extremity Exam: normal inspection, normal range of motion Mental Status Exam: alert, oriented x 3, 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 Exam: normal hearing, normal speech, PERRL, No abnormal eye position, No abnormal gag reflex Coordination/Gait Exam: normal finger to nose, normal cerebellar function, negative Romberg's sign Motor/Sensory Exam: no motor deficit, no sensory deficit, no pronator drift, negative Babinski's sign DTR Exam: bicep (R): 2+, bicep (L): 2+, knee (R): 1+, knee (L): 1+ Skin Exam: normal color, warm, dry Lymphatic Exam: No adenopathy SpO2 Interpretation: normal SpO2: 100 O2 Delivery: Room Air - Course Nursing assessment & vital signs reviewed: Yes EKG Interpreted by Me: RATE (NSR/Rate 89/Normal QT-QTc/Nonspecific Twave abnormality) - CT Exams Head CT Interpretation: Discussed w/radiologist (WNL) Ordered Tests: Active Orders 24 hr Category Date Time Status EKG-ER Only STAT Care 02/10/23 20:31 Completed HEAD WITHOUT CONTRAST [CT] Stat Exams 02/10/23 20:32 Taken CBC W DIFF Stat Lab 02/10/23 20:30 Completed CMP Stat Lab 02/10/23 20:30 Completed Lactic Acid Stat Lab 02/10/23 20:43 Completed TROPONIN Q4H Lab 02/10/23 20:30 Completed Medication Summary Discontinued Medications Generic Name Dose Route Start Last Admin Trade Name William PRN Reason Stop Dose Admin Fentanyl Citrate 50 mcg 02/10/23 20:32 02/10/23 20:39 Fentanyl Citrate 100 Mcg/2 Ml* Vial IV 02/10/23 20:33 50 mcg STAT ONE Administration Fentanyl Citrate Confirm 02/10/23 20:37 Fentanyl Citrate 100 Mcg/2 Ml* Vial Administered 02/10/23 20:38 Dose 100 mcg .ROUTE .STK-MED ONE Fentanyl Citrate 25 mcg 02/10/23 22:06 02/10/23 22:11 Fentanyl Citrate 100 Mcg/2 Ml* Vial IV 02/10/23 22:07 25 mcg STAT ONE Administration Fentanyl Citrate Confirm 02/10/23 22:09 Fentanyl Citrate 100 Mcg/2 Ml* Vial Administered 02/10/23 22:10 Dose 100 mcg .ROUTE .STK-MED ONE Ondansetron HCl 4 mg 02/10/23 20:32 02/10/23 20:38 Ondansetron Hcl 4 Mg/2 Ml Vial IV 02/10/23 20:33 4 mg STAT ONE Administration Ondansetron HCl Confirm 02/10/23 20:36 Ondansetron Hcl 4 Mg/2 Ml Vial Administered 02/10/23 20:37 Dose 4 mg .ROUTE .STK-MED ONE Lab/Rad Data: Laboratory Result Diagrams 02/10/23 20:30 02/10/23 20:30 Laboratory Results 02/10/23 02/10/23 02/10/23 Range/Units 20:48 20:43 20:30 WBC (4.0-10.5) x10^3/uL RBC (4.1-5.4) x10^6/uL Hgb (12.0-16.0) g/dL Hct (35-47) % MCV (78-100) fL MCH (26-32) pg MCHC (32-36) g/dL RDW (11.5-14.0) % Plt Count (150-450) x10^3/uL MPV (7.5-11.0) fL Gran % (36.0-66.0) % Immature Gran % (Auto) (0.00-0.4) % Nucleat RBC Rel Count (0.00-0.1) % Eos # (Auto) (0-0.5) x10^3/uL Immature Gran # (Auto) (0.00-0.03) x10^3u/L Absolute Lymphs (auto) (1.0-4.6) x10^3/uL Absolute Monos (auto) (0.0-1.3) x10^3/uL Absolute Nucleated RBC (0.00-0.01) x10^3u/L Lymphocytes % (24.0-44.0) % Monocytes % (0.0-12.0) % Eosinophils % (0.00-5.0) % Basophils % (0.0-0.4) % Absolute Granulocytes (1.4-6.9) x10^3/uL Basophils # (0-0.4) x10^3/uL Sodium (137-145) mmol/L Potassium (3.5-5.1) mmol/L Chloride (98-107) mmol/L Carbon Dioxide (22-30) mmol/L Anion Gap (5-15) MEQ/L BUN (7-17) mg/dL Creatinine (0.52-1.04) mg/dL Estimated GFR ML/MIN Glucose (74-106) mg/dL Lactic Acid 1.3 (0.4-2.0) Calcium (8.4-10.2) mg/dL Total Bilirubin (0.2-1.3) mg/dL AST (14-36) U/L ALT (0-35) U/L Alkaline Phosphatase (38-126) U/L Troponin I < 0.012 (0.000-0.034) ng/mL Serum Total Protein (6.3-8.2) g/dL Albumin (3.5-5.0) g/dL Influenza Type A Ag NEGATIVE (NEGATIVE) Influenza Type B Ag NEGATIVE (NEGATIVE) RSV (PCR) NEGATIVE (NEGATIVE) SARS-CoV-2 (PCR) NEGATIVE (NEGATIVE) 02/10/23 02/10/23 Range/Units 20:30 20:30 WBC 10.7 H (4.0-10.5) x10^3/uL RBC 4.57 (4.1-5.4) x10^6/uL Hgb 12.8 (12.0-16.0) g/dL Hct 39.9 (35-47) % MCV 87.3 (78-100) fL MCH 28.0 (26-32) pg MCHC 32.1 (32-36) g/dL RDW 12.6 (11.5-14.0) % Plt Count 312 (150-450) x10^3/uL MPV 10.3 (7.5-11.0) fL Gran % 56.9 (36.0-66.0) % Immature Gran % (Auto) 0.3 (0.00-0.4) % Nucleat RBC Rel Count 0.0 (0.00-0.1) % Eos # (Auto) 0.11 (0-0.5) x10^3/uL Immature Gran # (Auto) 0.03 (0.00-0.03) x10^3u/L Absolute Lymphs (auto) 3.75 (1.0-4.6) x10^3/uL Absolute Monos (auto) 0.67 (0.0-1.3) x10^3/uL Absolute Nucleated RBC 0.00 (0.00-0.01) x10^3u/L Lymphocytes % 35.1 (24.0-44.0) % Monocytes % 6.3 (0.0-12.0) % Eosinophils % 1.0 (0.00-5.0) % Basophils % 0.4 (0.0-0.4) % Absolute Granulocytes 6.07 (1.4-6.9) x10^3/uL Basophils # 0.04 (0-0.4) x10^3/uL Sodium 139 (137-145) mmol/L Potassium 4.2 (3.5-5.1) mmol/L Chloride 104 (98-107) mmol/L Carbon Dioxide 26 (22-30) mmol/L Anion Gap 12.9 (5-15) MEQ/L BUN 8 (7-17) mg/dL Creatinine 0.61 (0.52-1.04) mg/dL Estimated GFR > 60.0 ML/MIN Glucose 100 (74-106) mg/dL Lactic Acid (0.4-2.0) Calcium 9.2 (8.4-10.2) mg/dL Total Bilirubin 0.60 (0.2-1.3) mg/dL AST 31 (14-36) U/L ALT 28 (0-35) U/L Alkaline Phosphatase 114 (38-126) U/L Troponin I (0.000-0.034) ng/mL Serum Total Protein 7.5 (6.3-8.2) g/dL Albumin 4.4 (3.5-5.0) g/dL Influenza Type A Ag (NEGATIVE) Influenza Type B Ag (NEGATIVE) RSV (PCR) (NEGATIVE) SARS-CoV-2 (PCR) (NEGATIVE) - Progress Progress Note: 02/10/23 22:05 Nursing note and vital signs reviewed No food or housing insecurities noted Additonal history per All lab results reviewed and shared w pt/ CT head result reviewed and shared w pt/ 50mcg IV Fentanyl/4mg IV Zofran w improvement in pain Additional 25mcg IV Fentanyl before discharge Serial neuro exams normal during stay/No focal weakness or nuchal rigidity observed Pain most likely due to an atypical MGHA or tension RODRIGUEZ 02/10/23 22:06 Medical Desision Making - Independent Historian Additional History obtained from: Spouse - Diagnostic Testing Diagnostic test were ordered, analyzed, and reviewed by me: Yes Radiological Interpretation: Reviewed by me - Risk of complications Low Risk: Low risk of morbidity from additional dx testing or treatment - Departure Departure Disposition: Home Clinical Impression: Headache Condition: Stable Critical Care Time: No Referrals: RUTH SIMS MD [Primary Care Provider] - Follow up/PCP as directed Instructions: Tension Headache Additional Instructions: Return to ER for increasing pain or temperature greater than 100.5 Follow up with your family
[2023-02-10 20:50] LABS: ALBUMIN 4.4 g/dL (3.5-5.0); ALKALINE PHOSPHATASE 114 U/L (38-126); ANION GAP 12.9 MEQ/L (5-15); BLOOD UREA NITROGEN 8 mg/dL (7-17); CHLORIDE 104 mmol/L (98-107); Calcium 9.2 mg/dL (8.4-10.2); Carbon Dioxide 26 mmol/L (22-30); Creatinine 1 0.61 mg/dL (0.52-1.04); EST GLOMERULAR FILTRATION RATE > 60.0 ML/MIN; Glucose 100 mg/dL (74-106); Potassium 4.2 mmol/L (3.5-5.1); SGOT/AST 31 U/L (14-36); SGPT/ALT 28 U/L (0-35); SODIUM 139 mmol/L (137-145); Total Protein 7.5 g/dL (6.3-8.2)
[2023-02-10 21:32] VITALS: O2SAT 100
[2023-02-10 21:52] LABS: INFLUENZA A NEGATIVE (NEGATIVE); INFLUENZA B NEGATIVE (NEGATIVE); RESPIRATORY SYNCTIAL VIRUS NEGATIVE (NEGATIVE); SARS-CoV-2 Xpert Express NEGATIVE (NEGATIVE)
[2023-02-10 22:18] VITALS: BP 128/84; PULSE 91; RESP 12
--- NOTE | 2023-02-11 08:41 | XRAY ---
Indication: Headache. Multiple contiguous axial images obtained through the head without contrast. Comparison: October 15, 2017 Normal appearing brain parenchyma, ventricles, and bony calvarium. Visualized paranasal sinuses and mastoid air cells are clear. Impression: Continued normal CT head without contrast exam.
== END 2023-02-10 22:26 | disposition home or self-care (01) ==
LOC: ED 20:08
DX: R51.9 Headache, unspecified (principal); R11.0 Nausea; R07.9 Chest pain, unspecified; R06.00 Dyspnea, unspecified; Z28.310 Unvaccinated for COVID-19
CPT/HCPCS: 0241U; 36000; 36415; 70450; 80053; 83605; 84484; 85025; 93005; 96374; 96375; 96376; 99284; J2405; J3010

== ENCOUNTER 2023-04-06 15:00 | Emergency (ER) | payer SELFPAY ==
[2023-04-06] MEDS ORDERED: Zofran 4 MG/2 ML VIAL IV ONE (15:27)
[2023-04-06] MEDS ORDERED: Sodium Chloride 0.9% 1000 ML 1,000 ML IV STA (15:27)
[2023-04-06] MEDS ORDERED: TORAdol 30 mg Injection IV ONE (15:27)
--- NOTE | 2023-04-06 15:32 | ERPHSYRPT ---
- History of Present Illness Time Seen by Provider: 04/06/23 15:30 Historian: patient Exam Limitations: no limitations Physician History: 27 years old female with past medical history of left ovarian cyst surgical excision back in 2019. The patient is presenting to the emergency room complaining of severe lower abdominal pain that started almost 45 minutes prior to arrival to the emergency room while sitting down. Her pain was so severe rating it 10 out of 10 she felt nauseous no vomiting. The patient is denying any urinary symptoms. Her last menstrual period was March 16, her last bowel movement was yesterday. She has not taken any pain medications. Her abdominal pain which is achy and constant at present is less rating it 8 out of 10. Allergies/Adverse Reactions: No Known Drug Allergies Allergy (Verified 04/06/23 15:18) Home Medications: Progesterone, Micronized [Progesterone] 200 mg PO DAILY 02/10/23 [History] Hx Tetanus, Diphtheria Vaccination/Date Given: Yes Hx Influenza Vaccination/Date Given: No Hx Pneumococcal Vaccination/Date Given: No Travel Risk - Vaccine Status Have you recieved a Covid-19 vaccination: No - Review of Systems Constitutional: No Fever, No Chills Eyes: No Symptoms Ears, Nose, & Throat: No Symptoms Respiratory: No Cough, No Dyspnea Cardiac: No Chest Pain, No Edema, No Syncope Abdominal/Gastrointestinal: Abdominal Pain, Nausea Genitourinary Symptoms: No Dysuria Musculoskeletal: No Back Pain, No Neck Pain Skin: No Rash Neurological: No Dizziness, No Focal Weakness, No Sensory Changes Psychological: No Symptoms Endocrine: No Symptoms All Other Systems: Reviewed and Negative - Past Medical History Pertinent Past Medical History: Yes Neurological History: Migraines ENT History: No Pertinent History Cardiac History: No Pertinent History Respiratory History: No Pertinent History Endocrine Medical History: No Pertinent History Musculoskeletal History: No Pertinent History GI Medical History: No Pertinent History History: No Pertinent History Psycho-Social History: Anxiety, Depression Female Reproductive Disorders: No Pertinent History - Past Surgical History Past Surgical History: Yes Neuro Surgical History: No Pertinent History Cardiac: No Pertinent History Respiratory: No Pertinent History Gastrointestinal: No Pertinent History Genitourinary: No Pertinent History Musculoskeletal: No Pertinent History Female Surgical History: No Pertinent History Other Surgical History: tonsilectomy. ovarian cyst - Social History Smoking Status: Never smoker Exposure to second hand smoke: Yes Drug Use: none Patient Lives Alone: No Significant Family History: no pertinent family hx - Nursing Vital Signs Nursing Vital Signs: Initial Vital Signs Pulse Rate 76 04/06/23 15:26 Respiratory Rate 22 04/06/23 15:26 Blood Pressure 124/77 04/06/23 15:26 O2 Sat by Pulse Oximetry 98 04/06/23 15:26 Pain Scale Pain Intensity 7 - Physical Exam General Appearance: no apparent distress, alert Eye Exam: PERRL/EOMI, eyes nml inspection Ears, Nose, Throat Exam: normal ENT inspection, pharynx normal, moist mucous membranes Neck Exam: normal inspection, non-tender, supple, full range of motion Respiratory Exam: normal breath sounds, lungs clear, No respiratory distress Cardiovascular Exam: regular rate/rhythm, normal heart sounds Gastrointestinal/Abdomen Exam: soft, tenderness (Bilateral lower quadrant and suprapubic tenderness no rebound, no guarding or rigidity), No mass Back Exam: normal inspection, normal range of motion, No CVA tenderness, No vertebral tenderness Extremity Exam: normal inspection, normal range of motion, pelvis stable Neurologic Exam: alert, oriented x 3, cooperative, normal mood/affect, nml cerebellar function, sensation nml, No motor deficits Skin Exam: normal color, warm, dry - Course Nursing assessment & vital signs reviewed: Yes Ordered Tests: Active Orders 24 hr Category Date Time Status ABDOMEN AND PELVIS W CONTRAST [CT] Stat Exams 04/06/23 15:28 Completed CBC W DIFF Stat Lab 04/06/23 15:40 Completed CMP Stat Lab 04/06/23 15:40 Completed HCG QUALITATIVE, URINE Stat Lab 04/06/23 15:40 Completed LIPASE Stat Lab 04/06/23 15:40 Completed UA W/RFX UR CULTURE Stat Lab 04/06/23 15:32 Completed Medication Summary Discontinued Medications Generic Name Dose Route Start Last Admin Trade Name Freq PRN Reason Stop Dose Admin Sodium Chloride 1,000 mls @ 999 mls/hr 04/06/23 15:27 04/06/23 17:04 Sodium Chloride 0.9% 1000 Ml IV 04/06/23 16:27 Infused .Q1H1M STA Infusion Sodium Chloride Confirm 04/06/23 15:52 Sodium Chloride 0.9% 1000 Ml Administered 04/06/23 15:53 Dose 1,000 mls @ ud .ROUTE .STK-MED ONE Ketorolac Tromethamine 30 mg 04/06/23 15:27 04/06/23 15:54 Ketorolac Tromethamine 30 Mg/Ml Inj IV 04/06/23 15:28 30 mg STAT ONE Administration Ketorolac Tromethamine Confirm 04/06/23 15:52 Ketorolac Tromethamine 30 Mg/Ml Inj Administered 04/06/23 15:53 Dose 30 mg .ROUTE .STK-MED ONE Ondansetron HCl 4 mg 04/06/23 15:27 04/06/23 15:54 Ondansetron Hcl 4 Mg/2 Ml Vial IV 04/06/23 15:28 4 mg STAT ONE Administration Ondansetron HCl Confirm 04/06/23 15:52 Ondansetron Hcl 4 Mg/2 Ml Vial Administered 04/06/23 15:53 Dose 4 mg .ROUTE .STK-MED ONE Lab/Rad Data: Laboratory Result Diagrams 04/06/23 15:40 04/06/23 15:40 Laboratory Results 04/06/23 04/06/23 04/06/23 Range/Units 15:40 15:40 15:40 WBC 11.6 H (4.0-10.5) x10^3/uL RBC 4.51 (4.1-5.4) x10^6/uL Hgb 12.6 (12.0-16.0) g/dL Hct 39.3 (35-47) % MCV 87.1 (78-100) fL MCH 27.9 (26-32) pg MCHC 32.1 (32-36) g/dL RDW 12.3 (11.5-14.0) % Plt Count 302 (150-450) x10^3/uL MPV 10.4 (7.5-11.0) fL Gran % 64.2 (36.0-66.0) % Immature Gran % (Auto) 0.3 (0.00-0.4) % Nucleat RBC Rel Count 0.0 (0.00-0.1) % Eos # (Auto) 0.12 (0-0.5) x10^3/uL Immature Gran # (Auto) 0.03 (0.00-0.03) x10^3u/L Absolute Lymphs (auto) 3.18 (1.0-4.6) x10^3/uL Absolute Monos (auto) 0.78 (0.0-1.3) x10^3/uL Absolute Nucleated RBC 0.00 (0.00-0.01) x10^3u/L Lymphocytes % 27.4 (24.0-44.0) % Monocytes % 6.7 (0.0-12.0) % Eosinophils % 1.0 (0.00-5.0) % Basophils % 0.4 (0.0-0.4) % Absolute Granulocytes 7.43 H (1.4-6.9) x10^3/uL Basophils # 0.05 (0-0.4) x10^3/uL Sodium 136 L (137-145) mmol/L Potassium 3.6 (3.5-5.1) mmol/L Chloride 104 (98-107) mmol/L Carbon Dioxide 25 (22-30) mmol/L Anion Gap 11.4 (5-15) MEQ/L BUN 8 (7-17) mg/dL Creatinine 0.69 (0.52-1.04) mg/dL Estimated GFR 121.9 ML/MIN Glucose 97 (74-106) mg/dL Calcium 8.8 (8.4-10.2) mg/dL Total Bilirubin 0.70 (0.2-1.3) mg/dL AST 20 (14-36) U/L ALT 20 (0-35) U/L Alkaline Phosphatase 87 (38-126) U/L Serum Total Protein 7.0 (6.3-8.2) g/dL Albumin 4.0 (3.5-5.0) g/dL Lipase 78 (23-300) U/L Urine Color (Yellow) Urine Appearance (Clear) Urine pH (4.6-8.0) Ur Specific [place] (1.005-1.030) Urine Protein (Negative) Urine Glucose (UA) (Negative) mg/dL Urine Ketones (Negative) Urine Blood (Negative) Urine Nitrite (Negative) Urine Bilirubin (Negative) Urine Urobilinogen (0.2) mg/dL Ur Leukocyte Esterase (Negative) U Hyaline Cast (Auto) (0-2) /LPF Urine Microscopic RBC (0-5) /HPF Urine Microscopic WBC (0-5) /HPF Ur Epithelial Cells (None Seen) /HPF Urine Bacteria (None Seen) /HPF Urine Culture Reflexed (NO) Urine HCG, Qual NEGATIVE (NEGATIVE) 04/06/23 Range/Units 15:32 WBC (4.0-10.5) x10^3/uL RBC (4.1-5.4) x10^6/uL Hgb (12.0-16.0) g/dL Hct (35-47) % MCV (78-100) fL MCH (26-32) pg MCHC (32-36) g/dL RDW (11.5-14.0) % Plt Count (150-450) x10^3/uL MPV (7.5-11.0) fL Gran % (36.0-66.0) % Immature Gran % (Auto) (0.00-0.4) % Nucleat RBC Rel Count (0.00-0.1) % Eos # (Auto) (0-0.5) x10^3/uL Immature Gran # (Auto) (0.00-0.03) x10^3u/L Absolute Lymphs (auto) (1.0-4.6) x10^3/uL Absolute Monos (auto) (0.0-1.3) x10^3/uL Absolute Nucleated RBC (0.00-0.01) x10^3u/L Lymphocytes % (24.0-44.0) % Monocytes % (0.0-12.0) % Eosinophils % (0.00-5.0) % Basophils % (0.0-0.4) % Absolute Granulocytes (1.4-6.9) x10^3/uL Basophils # (0-0.4) x10^3/uL Sodium (137-145) mmol/L Potassium (3.5-5.1) mmol/L Chloride (98-107) mmol/L Carbon Dioxide (22-30) mmol/L Anion Gap (5-15) MEQ/L BUN (7-17) mg/dL Creatinine (0.52-1.04) mg/dL Estimated GFR ML/MIN Glucose (74-106) mg/dL Calcium (8.4-10.2) mg/dL Total Bilirubin (0.2-1.3) mg/dL AST (14-36) U/L ALT (0-35) U/L Alkaline Phosphatase (38-126) U/L Serum Total Protein (6.3-8.2) g/dL Albumin (3.5-5.0) g/dL Lipase (23-300) U/L Urine Color Yellow (Yellow) Urine Appearance Clear (Clear) Urine pH 7.0 (4.6-8.0) Ur Specific [place] >=1.030 A (1.005-1.030) Urine Protein Negative (Negative) Urine Glucose (UA) Negative (Negative) mg/dL Urine Ketones Negative (Negative) Urine Blood Negative (Negative) Urine Nitrite Negative (Negative) Urine Bilirubin Negative (Negative) Urine Urobilinogen 1.0 A (0.2) mg/dL Ur Leukocyte Esterase Negative (Negative) U Hyaline Cast (Auto) NONE SEEN (0-2) /LPF Urine Microscopic RBC 0-2 (0-5) /HPF Urine Microscopic WBC 0-2 (0-5) /HPF Ur Epithelial Cells Few (None Seen) /HPF Urine Bacteria Few A (None Seen) /HPF Urine Culture Reflexed NO (NO) Urine HCG, Qual (NEGATIVE) - Progress Progress: improved Progress Note: 04/06/23 15:32 27 years old female past medical history of ovarian cyst, status post left ovarian cyst excision back in 2019. The patient is presenting to the emergency room complaining of severe lower abdominal pain that started almost 45 minutes prior to arrival to the emergency room rating it 10 out of 10 with nausea no vomiting. Emergency room course and medical decision making. At present the patient's pain is down to 8 out of 10. She will have an IV access, IV fluids, Toradol 30 IV, Zofran 4 mg IV. Check CBC, CMP, lipase, UA, test, CT scan of abdomen and pelvis with IV contrast for 6:45 PM The patient is feeling much better, her pain is down to 1 out of 10. Her workup revealed an elevated white count at 11.6, normal hemoglobin 12.7, hematocrit at 39, BUN 8, creatinine 0.6. CT scan of abdomen pelvis revealed redemonstration of right adnexal dermoid cyst 3.2 x 2.5 x 2.2 cm. Newly developed left adnexal cystic lesion with minimal peripheral fat stranding measuring 3.5 x 2 x 2.4 cm. Radiologist recommends ultrasound or MRI. The patient will be discharged home, she can call her post anesthesia nurse and follow-up with her in regard to her bilateral ovarian cysts. In the meanwhile she can take ibuprofen 800g 3 times a day as needed for pain. - Departure Departure Disposition: Home Clinical Impression: Bilateral lower abdominal pain, Bilateral ovarian cysts Condition: Stable Critical Care Time: No Referrals: RUTH SIMS MD [Primary Care Provider] - Follow up/PCP as directed Additional Instructions: Follow-up with your post anesthesia nurse in 3 to 5 days. For the pain ibuprofen 800 mg 3 times a day as needed. Rest increase fluid intake, Follow-up as needed for any worsening symptoms with
[2023-04-06 15:49] LABS: HCG URINE TEST NEGATIVE (NEGATIVE)
[2023-04-06 15:50] LABS: Absolute Neutrophil Ct (ANC) 7.43 x10^3/uL (1.4-6.9); BASOPHIL % 0.4 % (0.0-0.4); Basophil (Absolute #) 0.05 x10^3/uL (0-0.4); Eosinophil (Absolute #) 0.12 x10^3/uL (0-0.5); Hematocrit 39.3 % (35-47); Hemoglobin 12.6 g/dL (12.0-16.0); IMMATURE GRAN # 0.03 x10^3u/L (0.00-0.03); IMMATURE GRAN % 0.3 % (0.00-0.4); Lymphocyte (Absolute #) 3.18 x10^3/uL (1.0-4.6); Lymphocytes % 27.4 % (24.0-44.0); Mean Cell Volume 87.1 fL (78-100); Mean Corpuscular Hemoglobin 27.9 pg (26-32); Mean Corpuscular Hgb Concent. 32.1 g/dL (32-36); Mean Platelet Volume 10.4 fL (7.5-11.0); Monocyte (Absolute #) 0.78 x10^3/uL (0.0-1.3); Monocytes % 6.7 % (0.0-12.0); Neutrophil % 64.2 % (36.0-66.0); Platelet Count 302 x10^3/uL (150-450); Red Blood Count 4.51 x10^6/uL (4.1-5.4); Red Cell Distribution Width 12.3 % (11.5-14.0); White Blood Count 11.6 x10^3/uL (4.0-10.5)
[2023-04-06] MEDS ORDERED: Sodium Chloride 0.9% 1000 ML 1,000 ML ONE (15:52)
[2023-04-06] MEDS ORDERED: TORAdol 30 mg Injection ONE (15:52)
[2023-04-06] MEDS ORDERED: Zofran 4 MG/2 ML VIAL ONE (15:52)
[2023-04-06 15:57] LABS: ANION GAP 11.4 MEQ/L (5-15); BILIRUBIN,TOTAL 0.7 mg/dL (0.2-1.3); Calcium 8.8 mg/dL (8.4-10.2); Creatinine 1 0.69 mg/dL (0.52-1.04); EST GLOMERULAR FILTRATION RATE 121.9 ML/MIN; Potassium 3.6 mmol/L (3.5-5.1)
--- NOTE | 2023-04-06 17:28 | XRAY ---
CLINICAL HISTORY:Abdominal pain COMPARISON:Compared to the previous study dated 08/18/2022. TECHNIQUE:CT of the abdomen and pelvis was performed with axial images as well as sagittal and coronal reconstruction images with IV intravenous contrast. FINDINGS: Redemonstration of mildly enlarged liver measures 18 cm in CC dimension. Diffusely low attenuation of liver due to hepatic steatosis. No focal hepatic lesion is seen. No intrahepatic or extrahepatic bile duct dilation. Gallbladder is contracted but no stones, wall thickening or pericholecystic inflammatory changes or fluid. Unremarkable appearing pancreas. No pancreatic mass or ductal dilatation is seen. Unremarkable appearing spleen. The adrenal glands are normal. The kidneys appear unremarkable with no cysts, calculi, masses or hydronephrosis. The ureters are normal with no stones. Unremarkable abdominal aorta without specific evidence of aneurysm or dissection. IVC is normal. Normal CT appearance of the appendix. The stomach appears unremarkable. Unremarkable appearing duodenum. Small Bowel and colon are non-distended with no abnormality. No free air and no ascites. No free intraperitoneal air is seen. The bladder is partially filled with no stones. An anteverted uterus is noted. Redemonstration of a fat-containing right adnexal lesion with focal peripheral calcification is noted measuring 3.2 x 2.5 x 2.2 cm likely a dermoid cyst. The left adnexa shows a well-defined hypodense cystic lesion measuring 3.5 x 2.1 x 2.4 cm in the (AP x Trans x cc) dimensions. Surrounding fat stranding is noted. No osseous lesion was seen in the visualized skeleton. Normal CT appearance of the appendix. IMPRESSION: 1. Redemonstration of hepatic steatosis with mild hepatomegaly. 2. Redemonstration of the right adnexal dermoid cyst (3.2 x 2.5 x 2.2 cm). Ultrasound/MR correlation may be considered. 3. Newly developed left adnexal cystic lesion with minimal peripheral fat stranding, measuring 3.5 x 2.1 x 2.4 cm, for TV ultrasound/MRI correlation. 4. Follow-up is advised. Compared to the previous study dated 08/18/2022. Electronically Signed by: Juana Paez MD. (04/06/2023 17:24:21 EST)
[2023-04-06 18:48] LABS: Appearance Clear (Clear); Bacteria Few /HPF (None Seen); Bilirubin Negative (Negative); Blood Negative (Negative); Epithelial Cells Few /HPF (None Seen); Glucose, Urine Negative (Negative); Hyaline Casts NONE SEEN /LPF (0-2); Ketones Negative (Negative); Leukocyte Esterase Negative (Negative); Nitrite Negative (Negative); Protein,Urine Dip Negative (Negative); RBC 0-2 /HPF (0-5); Specific Gravity >=1.030 (1.005-1.030)
[2023-04-06 18:49] LABS: ADD URINE CULTURE? NO (NO); WBC 0-2 /HPF (0-5)
[2023-04-06 19:30] VITALS: BP 116/72; PULSE 88; RESP 16; O2SAT 97
== END 2023-04-06 19:29 | disposition home or self-care (01) ==
LOC: ED 15:00
DX: N83.202 Unspecified ovarian cyst, left side (principal); N83.201 Unspecified ovarian cyst, right side; R10.31 Right lower quadrant pain; R10.32 Left lower quadrant pain; R11.0 Nausea; Z28.310 Unvaccinated for COVID-19
CPT/HCPCS: 36000; 36415; 74177; 80053; 81001; 81025; 83690; 85025; 96374; 99284; J1885; J2405

== ENCOUNTER 2025-01-04 13:36 | Emergency (ER) | payer BC ==
[2025-01-04 13:48] VITALS: TEMP 98.3; O2SAT 99
--- NOTE | 2025-01-04 13:53 | ERPHSYRPT ---
- History of Present Illness Time Seen by Provider: 01/04/25 13:53 Historian: patient, family Exam Limitations: no limitations Patient Subjective Stated Complaint: patient came in reporting chest pain and tightness in chest Triage Nursing Assessment: alejandro was brought to ED by parent, says she is having chest pain and tightness in her chest back and shoulder. says this pain has been happeneing for a while dr started her on metoprolol and is having echo on the 25 of january. patient able to ambualte by self, alert and orientedx3. gait is steady. Physician History: This is a 29-year-old white female patient arrives by private vehicle and is a patient of Dr. Shoemaker with a complaint of substernal central chest pressure that began while at work today. Approxi-1 week ago, patient was seen by Dr. Shoemaker in the office and patient was told she might have a "heart valve leak". She is scheduled for stress test and echocardiogram but not till January 2025. She has had chest pain intermittently during the week last week and had another episode today and she became concerned. Patient arrives with a heart rhythm on the monitor normal sinus rhythm with a systolic blood pressure of 138 mmHg. Her room air oxygen saturation level is 100%. Patient has no history of coronary artery disease. She did have a twelve-lead EKG performed in January 2023 which showed normal sinus rhythm with a heart rate of 89, QTc of 440 and there was some borderline T changes. Quality: pressure Location: substernal, central Chest Pain Radiation: no radiation Severity of Pain-Max: mild Severity of Pain-Current: mild Modifying Factors: Improves With: nothing Associated Symptoms: denies symptoms Prior Chest Pain/Cardiac Workup: no prior chest pain, no prior cardiac workup Nitro Today/Relief: no nitro taken today Aspirin Treatment Today: no aspirin today, 81 mg x 4, provided by ED Allergies/Adverse Reactions: No Known Drug Allergies Allergy (Verified 04/06/23 15:18) Home Medications: Norgestimate-Ethinyl Estradiol [Tri-Lo-Alice Tablet] 1 tab PO DAILY 01/04/25 [History] Hx Tetanus, Diphtheria Vaccination/Date Given: Yes Hx Influenza Vaccination/Date Given: No Hx Pneumococcal Vaccination/Date Given: No Travel Risk - International Travel Have you traveled outside of the country in past 3 weeks: No - Emerging Infectious Disease Are you exhibiting symptoms associated with any current EIDs: No - Review of Systems Constitutional: No Symptoms Eyes: No Symptoms Ears, Nose, & Throat: No Symptoms Respiratory: No Symptoms Cardiac: Chest Pain Abdominal/Gastrointestinal: No Symptoms Genitourinary Symptoms: No Symptoms Musculoskeletal: No Symptoms Skin: No Symptoms Neurological: Dizziness (Now resolved) Psychological: No Symptoms Endocrine: No Symptoms Hematologic/Lymphatic: No Symptoms Immunological/Allergic: No Symptoms All Other Systems: Reviewed and Negative - Past Medical History Pertinent Past Medical History: Yes Neurological History: Migraines ENT History: No Pertinent History Cardiac History: No Pertinent History Respiratory History: No Pertinent History Endocrine Medical History: No Pertinent History Musculoskeletal History: No Pertinent History GI Medical History: No Pertinent History History: No Pertinent History Psycho-Social History: Anxiety, Depression Female Reproductive Disorders: No Pertinent History - Past Surgical History Past Surgical History: Yes Neuro Surgical History: No Pertinent History Cardiac: No Pertinent History Respiratory: No Pertinent History Gastrointestinal: No Pertinent History Genitourinary: No Pertinent History Musculoskeletal: No Pertinent History Female Surgical History: No Pertinent History Other Surgical History: tonsilectomy. ovarian cyst Significant Family History: no pertinent family hx - Female History Hx Now: No - Social History Smoking Status: Never smoker Exposure to second hand smoke: Yes Drug Use: none - Social Determinants of Health Will the patient participate in the screening: Yes Do you worry about a steady place to live?: No Do you have any problems with any of the following?: No known problems In the past 12 months,have you had to go without utilities?: No Transportation Issues: No Has anyone in your support network made you feel unsafe?: No Have you or anyone in your house had to go w/o enough food: No - Nursing Vital Signs Nursing Vital Signs: Initial Vital Signs Blood Pressure 148/94 01/04/25 13:38 Pain Scale Pain Intensity 7 - Physical Exam General Appearance: no apparent distress, alert, anxiety Eye Exam: PERRL/EOMI, eyes nml inspection Ears, Nose, Throat Exam: normal ENT inspection, moist mucous membranes Neck Exam: normal inspection, non-tender, supple, full range of motion Respiratory Exam: normal breath sounds, lungs clear, airway intact, No chest tenderness (The patient did have chest pressure earlier), No respiratory distress Cardiovascular Exam: regular rate/rhythm, normal heart sounds, normal peripheral pulses Gastrointestinal/Abdomen Exam: soft, normal bowel sounds, No tenderness Pelvic Exam: not done Rectal Exam: not done Back Exam: normal inspection, normal range of motion, No CVA tenderness, No vertebral tenderness Extremity Exam: normal inspection, normal range of motion, pelvis stable Neurologic Exam: alert, oriented x 3, cooperative, 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 QTc is 447. No significant change from comparison twelve-lead EKG from 02/10/2023) Ordered Tests: Active Orders 24 hr Category Date Time Status Ophthalmic Asst STAT Care 01/04/25 13:54 Active EKG-ER Only STAT Care 01/04/25 13:53 Active IV Insertion STAT Care 01/04/25 13:53 Active Pulse Oximetry (ED) STAT Care 01/04/25 13:53 Active CBC W DIFF Stat Lab 01/04/25 14:00 Completed CMP Stat Lab 01/04/25 14:00 Received D-DIMER QUANTITATIVE Stat Lab 01/04/25 14:00 Completed HCG QUALITATIVE, SERUM Stat Lab 01/04/25 14:00 Received MAGNESIUM Stat Lab 01/04/25 14:00 Received NT PRO BNPII Stat Lab 01/04/25 14:00 Received TROPONIN Q4H Lab 01/04/25 14:00 Received TROPONIN Q4H Lab 01/04/25 18:00 Ordered TROPONIN Q4H Lab 01/04/25 22:00 Ordered Medication Summary Discontinued Medications Generic Name Dose Route Start Last Admin Trade Name Freq PRN Reason Stop Dose Admin Aspirin 324 mg 01/04/25 13:53 01/04/25 14:13 Aspirin 81 Mg Tab.Chew PO 01/04/25 13:54 Not Given STAT ONE Aspirin 324 mg 01/04/25 14:14 01/04/25 14:17 Aspirin 81 Mg Tab.Chew PO 01/04/25 14:15 324 mg STAT ONE Administration Aspirin Confirm 01/04/25 14:17 Aspirin 81 Mg Tab.Chew Administered 01/04/25 14:18 Dose 324 mg .ROUTE .STK-MED ONE Lab/Rad Data: Laboratory Result Diagrams 01/04/25 14:00 Laboratory Results 01/04/25 01/04/25 Range/Units 14:00 14:00 WBC 10.4 H (3.98-10.04) x10^3/uL RBC 4.97 (3.93-5.22) x10^6/uL Hgb 13.7 (11.2-15.7) g/dL Hct 43.2 (34.1-44.9) % MCV 86.9 (79.4-94.8) fL MCH 27.6 (25.6-32.2) pg MCHC 31.7 L (32.2-35.5) g/dL RDW 12.7 (11.7-14.4) % Plt Count 335 (182-369) x10^3/uL MPV 9.8 (9.4-12.3) fL Gran % 61.1 (34.0-71.1) % Immature Gran % (Auto) 0.3 (0.001-0.429) % Nucleat RBC Rel Count 0.0 (0.00-0.2) % Eos # (Auto) 0.11 (0.04-0.36) x10^3/uL Immature Gran # (Auto) 0.03 (0.001-0.031) x10^3u/L Absolute Lymphs (auto) 3.21 (1.18-3.74) x10^3/uL Absolute Monos (auto) 0.61 (0.24-0.86) x10^3/uL Absolute Nucleated RBC 0.00 (0.00-0.012) x10^3u/L Lymphocytes % 31.0 (19.3-51.7) % Monocytes % 5.9 (4.7-12.5) % Eosinophils % 1.1 (0.7-5.8) % Basophils % 0.6 (0.1-1.2) % Absolute Granulocytes 6.33 H (1.56-6.13) x10^3/uL Basophils # 0.06 (0.01-0.08) x10^3/uL D-Dimer 0.23 (0.0-0.50) mg/L - Progress Progress: improved, re-examined Air Movement: good Progress Note: 01/04/25 14:57 My medical decision making and the assignment of moderate complexity of this patient's medical issue today is based on review of the patient's past medical history, review of patient's medication list, review of the patient's drug allergy list, history present illness and physical findings on examination. The workup in this patient includes placement of a intravenous line, CBC, CMP, magnesium level, troponin level, D-dimer level, twelve-lead EKG. Differential diagnosis includes but is not limited to muscle skeletal pain, anxiety/stress, myocardial infarction, electrolyte abnormalities, pulmonary embolus I interpreted the patient's laboratory data results. Based on laboratory data results there are no acute, emergent medical issues. 01/04/25 14:59 Patient's heart score is less than 4. She is safe to be discharged to home Blood Culture(s) Obtained: No Antibiotics given: No Counseled pt/family regarding: lab results, diagnosis, need for follow-up Medical Desision Making - Diagnostic Testing Diagnostic test were ordered, analyzed, and reviewed by me: Yes - Risk of complications Low Risk: Low risk of morbidity from additional dx testing or treatment - Departure Departure Disposition: Home Clinical Impression: Nonspecific chest pain, Anxiety about health Condition: Stable Critical Care Time: No Referrals: IVAN SHOEMAKER MD [Primary Care Provider, [facility]] - Follow up/PCP as directed Additional Instructions: Take all your medications as prescribed. Follow-up with your primary care provider by phone, 01/04/2025, to make arrangements for follow-up appointment for further evaluation management. Keep the appointments that you have for the outpatient cardiac workup.
[2025-01-04 14:05] LABS: BASOPHIL % 0.6 % (0.1-1.2); Hematocrit 43.2 % (34.1-44.9); Hemoglobin 13.7 g/dL (11.2-15.7); IMMATURE GRAN % 0.3 % (0.001-0.429); Mean Corpuscular Hemoglobin 27.6 pg (25.6-32.2); Mean Corpuscular Hgb Concent. 31.7 g/dL (32.2-35.5); Platelet Count 335 x10^3/uL (182-369); Red Blood Count 4.97 x10^6/uL (3.93-5.22); White Blood Count 10.4 x10^3/uL (3.98-10.04)
[2025-01-04 14:06] LABS: Basophil (Absolute #) 0.06 x10^3/uL (0.01-0.08); Eosinophil (Absolute #) 0.11 x10^3/uL (0.04-0.36); IMMATURE GRAN # 0.03 x10^3u/L (0.001-0.031); Lymphocyte (Absolute #) 3.21 x10^3/uL (1.18-3.74); Monocyte (Absolute #) 0.61 x10^3/uL (0.24-0.86); NUCLEATED RBC # 0.00 x10^3u/L (0.00-0.012); NUCLEATED RBC % 0.0 % (0.00-0.2)
[2025-01-04] MEDS: BABY ASPIRIN 81 MG CHEW PO ONE ×2 (14:13→14:17)
[2025-01-04] MEDS ORDERED: BABY ASPIRIN 81 MG CHEW ONE (14:17)
[2025-01-04 14:21] LABS: Calcium 9.9 mg/dL (8.4-10.2); Carbon Dioxide 28.0 mmol/L (22-30); Creatinine 1 0.65 mg/dL (0.52-1.04); EST GLOMERULAR FILTRATION RATE 122.2 ML/MIN; Glucose 85.0 mg/dL (74-106); Potassium 4.6 mmol/L (3.5-5.1); SGOT/AST 33.0 U/L (14-36); SGPT/ALT 42.0 U/L (0-35); Total Protein 7.4 g/dL (6.3-8.2)
[2025-01-04 14:33] LABS: NT PRO BNPII 124 pg/mL (<300); TROPONIN < 0.012 ng/mL (0.000-0.033)
[2025-01-04 14:57] LABS: HCG SERUM TEST NEGATIVE (NEGATIVE)
[2025-01-04 15:17] VITALS: RESP 12
[2025-01-04 15:50] VITALS: BP 139/84; PULSE 78
== END 2025-01-04 15:51 | disposition home or self-care (01) ==
LOC: ED 13:36
DX: R07.9 Chest pain, unspecified (principal); F45.9 Somatoform disorder, unspecified